=== PATIENT | female | born 1995 | race Caucasian/White ===

== ENCOUNTER 2021-04-30 20:11 | Emergency (ER) | payer OTHER, SELFPAY ==
[2021-04-30 20:12] VITALS: BP 131/68; PULSE 77; RESP 16; TEMP 36.4; O2SAT 99
--- NOTE | 2021-04-30 20:30 | ED.DENTAL ---
HPI - Dental/Oral General Chief complaint: Dental/Oral Stated complaint: dental pain Time Seen by Provider: 04/30/21 20:19 Source: patient Mode of arrival: ambulatory Limitations: no limitations History of Present Illness HPI Narrative: Patient presents for evaluation of right upper and lower dental pain for the last 4 to 5 days. She indicates she was eating when she broke fillings out of her right upper molar and right lower molar. This has caused a considerable amount of pain, without descriptive quality or numerical rating. No radicular component. No fever, chills, nausea, vomiting. She has tried salt water gargles, ibuprofen and tylenol without any improvement in her symptoms thereafter. She contacted a dentist and has an appointment 10 days from now. She states that they will not see her until she gets the infection under control . States no chance she is . Related Data Allergies Allergy/AdvReac Type Severity Reaction Status Date / Time No Known Allergies Allergy Verified 04/30/21 20:19 Review of Systems Review of Systems: CONSTITUTIONAL: Denies fever, chills, or sweats. EYES: Denies visual changes, redness, or discharge. ENT: Reports right upper and lower dental pain. Denies rhinorrhea, congestion, sore throat, or otalgia. CARDIOVASCULAR: Denies chest pain, palpitations, or edema. RESPIRATORY: Denies cough or dyspnea. GASTROINTESTINAL: Denies abdominal pain, nausea, vomiting, or diarrhea. GENITOURINARY: Denies dysuria or hematuria. SKIN: Denies rash or itching. MUSCULOSKELETAL: Denies back pain, joint pain, or myalgia. NEUROLOGIC: Denies headache, numbness, dizziness, or weakness. PSYCHIATRIC: Denies anxiety or depression. [facility] Past Medical History Medical History (Updated 04/30/21 @ 20:36 by Joey Lau, BRIDGETTE, SNEHA) No pertinent past medical history Surgical History Surgical History History of section Family History Family History Mother No pertinent past medical history Social History Social History Smoking status: Never smoker Alcohol intake: never Substance use: never Substance use type: does not use Gender identity (if verbalized by the patient): Female Sexual Orientation (if Verbalized by the Patient): Straight or Heterosexual Spiritual care concerns: No Exam Narrative: GENERAL: Well-appearing, well-nourished, and in no acute distress. HEAD: Normocephalic, atraumatic. EYES: PERRLA and EOMI. ENT: Nares clear, no rhinorrhea or epistaxis. Mucous membranes moist. Fracture of right upper and right lower molar. There is no visible or palpable abscess. Oropharynx without tonsillar hypertrophy exudate or other lesions. Bilateral TMs pearly corrales nonbulging NECK: Supple. No adenopathy or masses. No carotid bruits or JVD CHEST: Clear to auscultation. No respiratory distress. No wheezes rales or rhonchi HEART: Regular rate and rhythm. No murmur heard. Normal peripheral pulses. ABDOMEN: Soft, nontender, nondistended, normal active bowel sounds. EXTREMITIES: Normal range of motion. No edema. SKIN: Warm, dry, no rash. NEURO: No focal deficits. Alert and oriented x3. PSYCH: Normal mood and affect. Course Course Emergency Course: This is a 25-year-old female who presented with complaints of right upper and lower dental pain. On exam she has dental fractures the right upper and lower molars without visible or palpable abscess. She really has an appointment with her dentist, which she was advised to keep. She should return for worsening swelling. Pt in agreement with plan of care. Vital Signs Vital signs: Vital Signs Temperature 36.4 C 04/30/21 20:12 Pulse Rate 77 04/30/21 20:12 Respiratory Rate 16 04/30/21 20:12 Blood Pressure 131/68 04/30/21 20:12 Pulse Oximetry 99
== END 2021-04-30 20:57 | disposition home or self-care (01) ==
PROVIDERS: Emergency Provider Nurse Practitioner; PCP Obstetrics & Gynecology
DX: S02.5XXA Fracture of tooth (traumatic), initial encounter for closed fracture (principal); X58.XXXA Exposure to other specified factors, initial encounter
CPT/HCPCS: 99283

== ENCOUNTER 2022-06-20 08:41 | Emergency (ER) | payer OTHER, SELFPAY ==
[2022-06-20 08:46] VITALS: BP 146/97; PULSE 95; RESP 12; TEMP 36.3; O2SAT 99
== END 2022-06-20 08:46 | disposition left against medical advice (07) ==
LOC: ANHED 09:39
DX: K08.89 Other specified disorders of teeth and supporting structures (principal)
CPT/HCPCS: 99199

== ENCOUNTER 2023-07-30 16:34 | Emergency (ER) | payer SELFPAY ==
[2023-07-30 16:37] VITALS: BP 139/85; PULSE 86; RESP 16; TEMP 36.4; O2SAT 100
--- NOTE | 2023-07-30 17:45 | PC.NURSE ---
pt called x2 for MSE eval, did not respond, no one saw pt exit - did not notify anyone she declined to be seen and left the ED unwitnessed
== END 2023-07-30 17:45 | disposition left against medical advice (07) ==
LOC: ANHED 17:57
DX: R10.9 Unspecified abdominal pain (principal)
CPT/HCPCS: 99199

== ENCOUNTER 2024-11-13 06:32 | Emergency (ER) | payer MEDICAID, SELFPAY ==
--- OUTSIDE RECORDS SUMMARY | 2024-11-13 06:35 | XMS_ITS | Clinical Summary ---
Author Organization [facility] Address [address] [place] [address] Care Team Providers Care Transcription Coordinator Name Role Phone Jose Reid MD Primary Care Provider [phone] Allergies Active Allergy Reactions Criticality Noted Date Comments Ibuprofen Nausea & Vomiting Low 06/09/2020 Mushroom Rash Medium 06/09/2020 Medications Hospital, Clinic, or Other Facility Administered Medication Ordered Dose Route Frequency Start Date End Date Status levonorgestreL (MIRENA) 21 mcg/24 hours (8 yrs) 52 mg IUDIndications:Preg majo Contraception intrauterine Continuous (implanted device) 10/05/2023 9 Active Active Problems No known active problems Surgical History Surgery Date Site/Laterality Comments SECTION 06/18/2015 - 06/17/2016 SECTION 06/18/2016 - 06/17/2017 Social History Tobacco Use Types Packs/Day Years Used Date Smoking Tobacco: Never Tobacco Cessation:Counseling Given: Not Answered AUDIT-C Answer Date Recorded Frequency of Alcohol Consumption Not on file 10/05/2023 Q2: How many drinks containi ng alcohol do you have on a typical day when you are drinking? Patient does not drink 4 Q3: How often do you have si x or more drinks on one occasion? Never 10/05/2023 Personal Safety Answer Date Recorded Getting School Help Needed Not on file 08/18 Comments No Sex and Gender Information Value Date Recorded Sex Assigned at Not on file Legal Sex Female 6:49 AM COFFEE TASTER Gender Identity Not on file Sexual Orientation Not on file Obstetrics History Para Term AB IAB SAB Ectopic Multiple Livin g Live Births 4 4 2 2 4 Date Outcome GA Total Labor Labor/2nd/3rd Weight Sex Type Anes PTL Cande A1 A5 Name Clin Term Term Last Filed Vital Signs Vital Sign Reading Time Taken Comments Blood Pressure 132/79 10/05/2023 11:39 AM CDT Pulse 83 06/09/2020 8:00 AM COFFEE TASTER Temperature 36.9 C (98.5 F) 06/09/2020 7:08 AM COFFEE TASTER Respiratory Rate 16 06/09/2020 7:08 AM COFFEE TASTER Oxygen Saturation 96% 06/09/2020 8:00 AM COFFEE TASTER Inhaled Oxygen Concentration - - Weight 104.8 kg (231 lb) 10/05/2023 11:39 AM CDT Height 165.1 cm (5' 5) 10/05/2023 11:39 AM CDT Body Mass Index 38.44 10/05/2023 11:39 AM CDT Plan of Treatment Health Maintenance Due Date Last Done Comments Cervical Cancer Screening 1993 Depression Screening 1993 Hepatitis C Screening 1993 DTaP/Tdap/Td Vaccine (5 - Tdap) 2004 03/20/1995, 06/07/1994, 05/05/1994, Additional history exists Varicella Vaccines (1 of 2 - 13+ 2-dose series) 2006 Regular Well Visit/Exam 18-64 12/08/2011 Influenza Vaccine (Season Ended) 2025 07/08/2014 Hepatitis B Screening Completed 03/20/1995 , 01/09/1994, 1993 HPV Vaccines Aged Out No longer eligi ble based on patient's age to complete this topic Pneumococcal vaccine <65 Aged Out No longer eligible based on patient's age to complete this topic Insurance [facility] Care Teams Transcription Coordinator Relationship Specialty Start Date End Date Jose Reid MD PCP - General 06/09/20
--- OUTSIDE RECORDS SUMMARY | 2024-11-13 06:35 | XMS_ITS | Data Portability ---
Author Organization [facility] [place] Address [address] [place] [address] Assessment Encounter Date Assessment Date Assessment LastModified by Organization Details LastModified Time 05/26/2023 05/26/2023 The patient and I disscussed the various causes of abnormal uterine bleeding, including polyps, fibroids, hyperplasia, atypia, anovulation, etc. We reviewed the typical evaluation with labs, pelvic US and possible endometrial biopsy. Briefly discussed the options available for treatment (depending on the results of evaluation) such as hormonal treatment (OCPs, progestins), Mirena, endometrial ablation, and surgery. We spent more than 30 minutes face to face. [email or web address] [id number] Not available 05/26/2023 11:19:52 Plan of Treatment Reminders Order Date Submit Date Provider Last Modified By Organization Details Last Modified Time Details Appointments None recorded. Lab unlisted lab - 17-oh progesteron e, lc/MS/MS [address] (Lab), [address], [place], [address], 4 10:26:42 dhea-sulfat e, serum [address] (Lab), [address] [place], [address], 4 10:26:42 hormone panel, serum or plasma [address] (Lab), [address] [place], [address], 4 10:26:42 HbA1c (hemoglobin A1c), blood [address] (Lab), [address], [place], [address], 4 10:26:42 progesteron e, serum [address] (Lab), [address], [place], [address], 4 10:26:42 prolactin, serum [address] (Lab), [address], [place], [address], 4 10:26:43 shbg (sex hormone-bin ding globulin), serum [address] (Lab), [address], [place], [address], 4 10:26:43 testosteron e free/testos terone total, ratio, serum [address] (Lab), [address] [place], [address], 4 10:26:43 TSH, serum or plasma [address] (Lab), [address], [place], [address], 4 10:26:43 CBC w/ auto diff [address] (Lab), [address], [place], [address], 4 10:26:43 CMP, serum or plasma [address] (Lab), [address] [place], [address], 4 10:26:43 Referral None recorded. Procedures None recorded. Surgeries None recorded. Imaging US, pelvis, complete 2022 023 [email or web address] Not available 4 11:30:56 Medication Orders None recorded. Patient TargetsNo targets recorded. Patient InstructionsNo instructions recorded. Reason for Referral None Reported. Procedures Surgical History Date Name Laterality Status Provider Name and Address Organization Details Recorded Time 3 IUD Removal completed Stefano Regalado MD [address], [place], [address], [facility] 05/04/2023 23:22:16 Imaging Results None recorded. Procedure Notes None recorded. Medical Equipment None Reported. Allergies No known drug allergies Medications Name Sig Start Date Stop Date Status Note LastModified by Organization Details LastModified Time clindamycin HCl 300 mg capsule TAKE 1 CAPSULE BY MOUTH EVERY 8 HOURS FOR 7 DAYS 05/26 completed Not Available Not Available Not Available tramadol 50 mg tablet TAKE 1/2 TABLET BY MOUTH EVERY 8 HOURS NEEDED 05/26 completed Not Available Not Available Not Available sertraline 50 mg tablet TAKE 1 TABLET BY MOUTH EVERY DAY 05/26 completed Not Available Not Available Not Available Vitals Date Recorded Body height Body mass index (BMI) Body weight Systolic blood pressure Diastolic blood pressure Provider Name and Address Organization Details Last Updated DateTime 05/04/2023 162.56 cm 39.5 kg/m2 201818.2 5 g 118 mm[Hg] 67 mm[Hg] Kita Bowie [facility] 3 16:37:47 Date Recorded Body height Body mass index (BMI) Body weight Systolic blood pressure Diastolic blood pressure Provider Name and Address Organization Details Last Updated DateTime 05/26/2023 162.56 cm 39.9 kg/m2 591275.8 7 g 120 mm[Hg] 83 mm[Hg] Katherine Laureano [facility] 3 11:25:27 Social History None recorded. Functional Status Question Answer Note LastModified by Organizat ion Details LastModified Time What is your level of alcohol consumption? Occasional [email or web address] Information not available 05/26/2023 Mental Status None recorded. Family History Nothing Reported. Medical History Condition Response Allergies (Food, seasonal, environmental ) N Other N Drug/Latex Allergies/Reactions N Breast Cancer N Blood Transfusion N Dermatologic Disorders N Lung Disease N Defects or Inherited Disease N Breast Problem N Gestational Diabetes N Hematologic disorders N Anesthesia Complications N History of STI N Deep Vein Thrombosis N Polycystic ovary syndrome N Anxiety Disorder N Autoimmune disease N Arthritis N Polyps N Infertility N Acid Reflux (GERD) N History of abnormal pap N Cancer N Varicosities N Stroke N Neurologic/Epilepsy N Endometriosis N High Cholesterol N Fibromyalgia N Headaches N Kidney Disease N Heart Problems N Thyroid Problems N Kidney or Bladder Problems N GI Problems N Eating Disorder N Anemia N Art (IVF or FET) N Psychiatric Illness N Ovarian Cancer N Diabetes N Pulmonary (TB, Asthma) N Hepatitis/Liver Disease N No Past Medical History N Eczema N Urinary Tract Infection N Abuse/Domestic Violence N Asthma N Trauma/Violence N Depression/ depression N Heart Disease N Pre-Eclampsia N Hypertension N Osteoporosis N Thrombophilias N Gynecological History Statement/Question Response Date of LMP Sexually Active? Y STIs/STDs N HPV Vaccine Y Date of Last Pap Smear Sexual Problems? N Current Control Method Seeking Pre gnancy Desired Control Method Seeking Pre gnancy LMP Unknown Obstetrics History GPAL:G 3 P 2 1 0 3 Type Value Full Term 2 Premature 1 Living 3 Total 3 Past Encounters Encounter ID Performer Location Encounter Start Date Encounter Closed Date Diagnosis/Indication Diagnosis SNOMED-CT Code Diagnosis ICD10 Code Diagnosis Note [id number] Stefano Regalado MD [place] [address] [address] 05/04/2023 15:36:46 05/05/2023 16:20:05 Contraception care management 817227393 Z30.9 IUD removed without complicati ons. She tolerated it well. [id number] Stefano Regalado MD [place] [address] [address] 05/26/2023 11:15:47 05/26/2023 12:23:57 Abnormal uterine bleeding [id number] 9100 N93.9 this patient is a 27-year-ol d female with longstandi ng abnormal uterine bleeding. She is been with the Mirena device for several years. She is not had any menses. She had it removed about a month ago and has not had a menses yet. She is concerned. She required reproducti ve assistance in her last because of her amenorrhea /irregular bleeding/a novulation . We spent 40 minutes face-to-fa ce. More than 50% was counseling . We talked about the menstrual cycle. We talked about sex hormones. We talked about etiology of abnormal uterine bleeding. Talked about reproducti ve assistance . We talked about her specific situation which is essentiall y unknown. She has the Mirena out and should wait more time to see if she can have a period on her own. she will get labs given her strong history of abnormal uterine bleeding. We will await the labs and a new menstrual history. Health Concerns Section Related Observation LastModified by Organization Detai ls LastModified Time None Recorded Concern Status LastModified by Organization Details LastModified Time None Recorded Advance Directives Directive None Recorded Payers Encounter Date Sequence Insurance Name Policy Number Policy Andres Covered Member ID Andres Member ID Guarantor Name 05/04/2023 1 [facility] ON OR AFTER 12/16/20 (MEDICAID REPLACEMENT - HMO) Manjula Cowart [id number] Manjula Cowart 05/26/2023 1 [facility] ON OR AFTER 12/16/20 (MEDICAID REPLACEMENT - HMO) Manjula Cowart [id number] Manjula Cowart Notes Date Note Type Note Provider Name and Address Organization Details Recorded Time 05/04/2023 text/html presents for IUD removal, she understands the procedure. It has been explained in detail. She understands risks, benefits, and alternatives. Stefano Regalado MD [address], [place], [address], [facility] 05/04/2023 23:23:06 05/26/2023 text/html this patient is a 27-year-old female with longstanding abnormal uterine bleeding. She is been with the Mirena device for several years. She is not had any menses. She had it removed about a month ago and has not had a menses yet. She is concerned. She required reproductive assistance in her last because of her amenorrhea/irregul ar bleeding/anovulati on. We spent 40 minutes [id number]. More than 50% was counseling. We talked about the menstrual cycle. We talked about sex hormones. We talked about etiology of abnormal uterine bleeding. Talked about reproductive assistance. We talked about her specific situation which is essentially unknown. She has the Mirena out and should wait more time to see if she can have a period on her own. she will get labs given her strong history of abnormal uterine bleeding. We will await the labs and a new menstrual history. Stefano Regalado MD [address], [place], [address], [place] [facility] 05/26/2023 12:23:38 OBGyn Episode Ob Episode Information Episode Created Date Number of Fetuses Patient Bloodtype Patient rh Status Prepregnancy Weight lbs Domestic Partner Domestic Partner Phone Father Name Fish Roe Processor Status 05/04/20 23 1 CLOSED Fetus Data First Name Last Name Admitted to NICU Weight (g) Sex Living Outcome Pediatric Complications Fetus ID Race Codes Race Delivery Type 3345.24 1 F Full Term [id number] Vaginal Delivery Sonu Calculation Initial Sonu Date Initial Exam Date Initial Exam Provider Initial Ultrasound Date Last Menstrual Period Date Ultra Sound Weeks Gestation 0 Eighteen To Twenty Week Sonu Update Ultra Sound Date Fundal Height At Umbil Quickening Date Ultra Sound Latest Weeks Gestation Final Sonu Confirmed By Final Sonu Confirmed Date Final Sonu Date Ultra Sound Latest Days Gestation 0 0 Menstrual History Last Menstrual Date Menses Monthly On Bcp Conception Prior Menses Frequency Hcg Plus Date Menarche Onset Age Delivery Information Delivery Date Delivery Type Labor Anesthesia Weeks Gestation Incision Type Labor Labor Length Hrs Delivered By Post Complications Tubal Sterilization Discharge Date Comments 1 Sascha Discharge Information Feeding Method Contraceptive Method Maternal HG B and HCT Levels Ob Episode Information Episode Created Date Number of Fetuses Patient Bloodtype Patient rh Status Prepregnancy Weight lbs Domestic Partner Domestic Partner Phone Father Name Fish Roe Processor Status 05/04/20 23 1 CLOSED Fetus Data First Name Last Name Admitted to NICU Weight (g) Sex Living Outcome Pediatric Complications Fetus ID Race Codes Race Delivery Type 3685.43 5 M Full Term [id number] Vaginal Delivery Sonu Calculation Initial Sonu Date Initial Exam Date Initial Exam Provider Initial Ultrasound Date Last Menstrual Period Date Ultra Sound Weeks Gestation 0 Eighteen To Twenty Week Sonu Update Ultra Sound Date Fundal Height At Umbil Quickening Date Ultra Sound Latest Weeks Gestation Final Sonu Confirmed By Final Sonu Confirmed Date Final Sonu Date Ultra Sound Latest Days Gestation 0 0 Menstrual History Last Menstrual Date Menses Monthly On Bcp Conception Prior Menses Frequency Hcg Plus Date Menarche Onset Age Delivery Information Delivery Date Delivery Type Labor Anesthesia Weeks Gestation Incision Type Labor Labor Length Hrs Delivered By Post Complications Tubal Sterilization Discharge Date Comments 3 Ty Discharge Information Feeding Method Contraceptive Method Maternal HG B and HCT Levels Ob Episode Information Episode Created Date Number of Fetuses Patient Bloodtype Patient rh Status Prepregnancy Weight lbs Domestic Partner Domestic Partner Phone Father Name Fish Roe Processor Status 05/04/20 23 1 CLOSED Fetus Data First Name Last Name Admitted to NICU Weight (g) Sex Living Outcome Pediatric Complications Fetus ID Race Codes Race Delivery Type 1785.79 1704 F Prematur e [id number] Primary Sonu Calculation Initial Sonu Date Initial Exam Date Initial Exam Provider Initial Ultrasound Date Last Menstrual Period Date Ultra Sound Weeks Gestation 0 Eighteen To Twenty Week Sonu Update Ultra Sound Date Fundal Height At Umbil Quickening Date Ultra Sound Latest Weeks Gestation Final Sonu Confirmed By Final Sonu Confirmed Date Final Sonu Date Ultra Sound Latest Days Gestation 0 0 Menstrual History Last Menstrual Date Menses Monthly On Bcp Conception Prior Menses Frequency Hcg Plus Date Menarche Onset Age Delivery Information Delivery Date Delivery Type Labor Anesthesia Weeks Gestation Incision Type Labor Labor Length Hrs Delivered By Post Complications Tubal Sterilization Discharge Date Comments 7 24 Aaleyah ruptured placenta per pt. Discharge Information Feeding Method Contraceptive Method Maternal HG B and HCT Levels
--- OUTSIDE RECORDS SUMMARY | 2024-11-13 06:35 | XMS_ITS | Referral Summary ---
Author Organization [facility] Address [address] [place] [address] Care Team Providers Care Optical Laboratory Mechanic Name Role Phone Jose Reid MD Primary Care Provider [phone] Allergies Active Allergy Reactions Criticality Noted Date Comments Ibuprofen Nausea & Vomiting Low 06/09/2020 Mushroom Rash Medium 06/09/2020 Medications Hospital, Clinic, or Other Facility Administered Medication Ordered Dose Route Frequency Start Date End Date Status levonorgestreL (MIRENA) 21 mcg/24 hours (8 yrs) 52 mg IUDIndications:Preg majo Contraception intrauterine Continuous (implanted device) 10/05/2023 9 Active Active Problems No known active problems Social History Tobacco Use Types Packs/Day Years Used Date Smoking Tobacco: Never Tobacco Cessation:Counseling Given: Not Answered AUDIT-C Answer Date Recorded Frequency of Alcohol Consumption Not on file 10/05/2023 Q2: How many drinks containi ng alcohol do you have on a typical day when you are drinking? Patient does not drink Q3: How often do you have si x or more drinks on one occasion? Never 10/05/2023 Personal Safety Answer Date Recorded Getting School Help Needed Not on file 08/18 Comments No Sex and Gender Information Value Date Recorded Sex Assigned at Not on file Legal Sex Female 6:49 AM HAND EDGER Gender Identity Not on file Sexual Orientation Not on file Last Filed Vital Signs Vital Sign Reading Time Taken Comments Blood Pressure 132/79 10/05/2023 11:39 AM CDT Pulse 83 06/09/2020 8:00 AM HAND EDGER Temperature 36.9 C (98.5 F) 06/09/2020 7:08 AM HAND EDGER Respiratory Rate 16 06/09/2020 7:08 AM HAND EDGER Oxygen Saturation 96% 06/09/2020 8:00 AM HAND EDGER Inhaled Oxygen Concentration - - Weight 104.8 kg (231 lb) 10/05/2023 11:39 AM CDT Height 165.1 cm (5' 5) 10/05/2023 11:39 AM CDT Body Mass Index 38.44 10/05/2023 11:39 AM CDT Plan of Treatment Not on file Insurance [facility] Care Teams Optical Laboratory Mechanic Relationship Specialty Start Date End Date Jose Reid MD PCP - General 06/09/20
--- OUTSIDE RECORDS SUMMARY | 2024-11-13 06:35 | XMS_ITS | Data Portability ---
Author Organization [facility] Ro Vela Address [address] [place] [address] Care Team Providers Care Hvac Mechanic Name Role Phone DONTAE DAVALOS Klystrom Tube Tester Unavailable Assessment No assessment recorded. Plan of Treatment Reminders Order Date Submit Date Provider Last Modified By Organization Details Last Modified Time Details Appointments None recorded. Lab pap, IG + CT/NG 2017 018 [facility], [address], [place], [address], 8 06:08:15 bacterial vaginosis + vaginitis panel, vaginal 2017 018 [facility], [address], [place], [address], 8 06:06:49 HSV (1+2) DNA, qual, PCR, unspecifi ed specimen 2017 018 [facility], [address], [place], [address], 9 14:53:41 test, urine 2017 018 [place] In-Office Order, Internal Use Only DO Not Attach Compendium DO Not Attach Compendium, Do Not Delete/merge, [id number] 8 12:24:54 urinalysi s, dipstick 2017 018 [place] In-Office Order, Internal Use Only DO Not Attach Compendium DO Not Attach Compendium, Do Not Delete/merge, [id number] 8 12:24:54 pap, IG + HPV, cervical 2016 017 [facility], [address], [place], [address], 7 16:19:09 culture, urine 2016 017 [facility], [address], [place], [address], 7 14:10:23 bacterial vaginosis + vaginitis panel, vaginal - Z11.3 2016 017 [facility], [address], [place], [address], 7 14:10:21 HSV (1+2) DNA, qual, PCR, unspecifi ed specimen - Z11.3 2016 017 [facility], [address] [place], [place] [address], [address], [place], [address], 7 14:10:22 culture, vaginal/r ectal, streptoco ccus group B - Z11.3 2016 017 [facility] [address], [address], [place], [address], 7 14:10:22 test, urine 2016 017 [place] In-Office Order, Internal Use Only DO Not Attach Compendium DO Not Attach Compendium, Do Not Delete/merge, [id number] 7 05:01:59 urinalysi s, dipstick 2016 017 [facility] In-Office Order, Internal Use Only DO Not Attach Compendium DO Not Attach Compendium, Do Not Delete/merge, [id number] 7 14:00:39 urinalysi s, dipstick 2016 017 [facility] In-Office Order, Internal Use Only DO Not Attach Compendium DO Not Attach Compendium, Do Not Delete/merge, [id number] 7 12:11:03 Referral counselin g referral 2016 017 [facility] (), [address] [place], [address], 7 13:28:54 counselin g referral 2016 017 [facility] (), [address] [place], [address], 7 15:30:22 Procedures None recorded. Surgeries None recorded. Imaging US, obstetric , 2nd trimester - 3d if available and at correct gestation al age. [address] ([facility] [employer]), [address] [place], [address], 7 12:44:46 US, obstetric , 2nd trimester 2016 017 [facility], [address] [place], [address], 7 15:18:57 Medication Orders Flagyl 500 mg tablet 2017 018 [id number], [address], [place], [place], [id number], 8 12:44:12 nitrofura ntoin monohydra te/macroc rystals 100 mg capsule 2016 017 [facility] #[id number], [address], [place], [place], [id number], 7 12:19:44 Mirena 21 mcg/24 hr (up to 8 years) 52 mg intrauter ine device 2016 017 yadira Not available 7 14:00:39 Contrave 8 mg-90 mg tablet,ex tended release 2016 017 [facility] Not available 7 12:46:32 calcium 600 mg (as carbonate )-vitamin D3 20 mcg (800 unit) tablet 2016 017 [facility] #[id number], [address], [place], [place], [id number], 7 14:36:37 Abilify 5 mg tablet 2016 017 [facility][id number], [address] [place], [id number], 7 14:36:37 buspirone 10 mg tablet [address] [place] [address] [facility][id number], [address] [place] [address], [id number], 7 12:15:28 citalopra m 40 mg tablet [email or web address] [place] [address] [facility][id number], [address] [place] [address], [id number], 7 12:15:24 bupropion HCl SR 150 mg tablet,12 hr sustained -release [address] [place] [address] [facility][id number], [address] [place] [address], [id number], 7 12:15:21 Patient TargetsNo targets recorded. Patient Instructions Encounter Date Encounter Id Patient Instructions Last Modified By Organization Details Last Modified Time 08/09/2016 [id number] learning about mood disorders yadira Not available 08/09/2016 15:18:57 09/06/2016 [id number] learning about mood disorders mwasserman Not available 09/06/2016 14:36:37 11/16/2016 [id number] depression after childbirth: care instructions [email or web address] Not available 11/16/2016 12:30:58 stress in parents of infants: care instructions [email or web address] Not available 11/16/2016 12:30:58 intrauterine device (IUD) insertion: care instructions [email or web address] Not available 11/16/2016 12:30:58 learning about obesity mwasserman Not available 11/16/2016 12:19:51 eating healthy foods: care instructions mwasserman Not available 11/16/2016 12:19:51 learning about dietary guidelines mwasserman Not available 11/16/2016 12:19:51 learning about healthy weight mwasserman Not available 11/16/2016 12:19:51 05/15/2018 [id number] When You Want to Lose Weight: Care Instructions [email or web address] Not available 05/15/2018 12:55:30 abnormal Pap test: care instructions [email or web address] Not available 05/15/2018 12:25:54 Well Visit, Ages 18 to 65: Care Instructions [email or web address] Not available 05/15/2018 12:54:58 bacterial vaginosis: care instructions [email or web address] Not available 05/15/2018 12:44:05 Reason for Referral Counseling Referral for Depr essive disorder Referring Physician: Dontae Davalos CAN CONVEYOR FEEDER, Encounter Date: 08/09/2016 Counseling Referral for Post depression Referring Physician: Dontae Davalos CAN CONVEYOR FEEDER, Encounter Date: 11/16/2016 Results Created Date Observation Date Name Description Value Unit Range Abnormal Flag Note LastModifiedBy Organization Detail LastModifiedTime 11/17/19 17 11/16/2016 urina lysis , dipst ick Leukocytes Trace Not Available In-Offi ce Order Internal Use Only DO Not Attach Compendium DO Not Attach Compendium, Do Not Delete/merge, [id number] 11/16/2016 11:52:26 11/17/19 17 11/16/2016 urina lysis , dipst ick Nitrite positi ve Not Available In-Office Order Internal Use Only DO Not Attach Compendium DO Not Attach Compendium, Do Not Delete/merge, [id number] 11/16/2016 11:52:26 11/17/19 17 11/16/2016 urina lysis , dipst ick Urobilinogen .2 Not Available In-Of fice Order Internal Use Only DO Not Attach Compendium DO Not Attach Compendium, Do Not Delete/merge, 11/16/2016 11:52:26 11/17/19 17 11/16/2016 urina lysis , dipst ick Protein Negati ve Not Available In-Office Order Internal Use Only DO Not Attach Compendium DO Not Attach Compendium, Do Not Delete/merge, 11/16/2016 11:52:26 11/17/19 17 11/16/2016 urina lysis , dipst ick pH 6.5 Not Available In-Office Order Internal Use Only DO Not Attach Compendium DO Not Attach Compendium, Do Not Delete/merge, 11/16/2016 11:52:26 11/17/19 17 11/16/2016 urina lysis , dipst ick Blood Modera te Not Available In-Office Order Internal Use Only DO Not Attach Compendium DO Not Attach Compendium, Do Not Delete/merge, 11/16/2016 11:52:26 11/17/19 17 11/16/2016 urina lysis , dipst ick Specific [place] 1.010 Not Available In-Off ice Order Internal Use Only DO Not Attach Compendium DO Not Attach Compendium, Do Not Delete/merge, 11/16/2016 11:52:26 11/17/1911/16/2016 urina lysis , dipst ick Ketone Negati ve Not Available In-Office Order Internal Use Only DO Not Attach Compendium DO Not Attach Compendium, Do Not Delete/merge, 11/16/2016 11:52:26 11/17/19 17 11/16/2016 urina lysis , dipst ick Bilirubin Negati ve Not Available In-Office Order Internal Use Only DO Not Attach Compendium DO Not Attach Compendium, Do Not Delete/merge, 11/16/2016 11:52:26 11/17/1911/16/2016 urina lysis , dipst ick Glucose Negati ve Not Available In-Office Order Internal Use Only DO Not Attach Compendium DO Not Attach Compendium, Do Not Delete/merge, 11/16/2016 11:52:26 09/07/19 17 09/06/2016 urina lysis , dipst ick Leukocytes Trace Not Available In-Offi ce Order Internal Use Only DO Not Attach Compendium DO Not Attach Compendium, Do Not Delete/merge, 09/06/2016 11:40:10 09/07/19 17 09/06/2016 urina lysis , dipst ick Nitrite negati ve Not Available In-Office Order Internal Use Only DO Not Attach Compendium DO Not Attach Compendium, Do Not Delete/merge, 09/06/2016 11:40:10 09/07/19 17 09/06/2016 urina lysis , dipst ick Urobilinogen .2 Not Available In-Of fice Order Internal Use Only DO Not Attach Compendium DO Not Attach Compendium, Do Not Delete/merge, 09/06/2016 11:40:10 09/07/19 17 09/06/2016 urina lysis , dipst ick Protein Negati ve Not Available In-Office Order Internal Use Only DO Not Attach Compendium DO Not Attach Compendium, Do Not Delete/merge, 09/06/2016 11:40:10 09/07/19 17 09/06/2016 urina lysis , dipst ick pH 7.5 Not Available In-Office Order Internal Use Only DO Not Attach Compendium DO Not Attach Compendium, Do Not Delete/merge, 09/06/2016 11:40:10 09/07/19 17 09/06/2016 urina lysis , dipst ick Blood Negati ve Not Available In-Office Order Internal Use Only DO Not Attach Compendium DO Not Attach Compendium, Do Not Delete/merge, 09/06/2016 11:40:10 09/07/19 17 09/06/2016 urina lysis , dipst ick Specific [place] 1.015 Not Available In-Off ice Order Internal Use Only DO Not Attach Compendium DO Not Attach Compendium, Do Not Delete/merge, 09/06/2016 11:40:10 09/07/19 17 09/06/2016 urina lysis , dipst ick Ketone Negati ve Not Available In-Office Order Internal Use Only DO Not Attach Compendium DO Not Attach Compendium, Do Not Delete/merge, 09/06/2016 11:40:10 09/07/19 17 09/06/2016 urina lysis , dipst ick Bilirubin Negati ve Not Available In-Office Order Internal Use Only DO Not Attach Compendium DO Not Attach Compendium, Do Not Delete/merge, 09/06/2016 11:40:10 09/07/19 17 09/06/2016 urina lysis , dipst ick Glucose Negati ve Not Available In-Office Order Internal Use Only DO Not Attach Compendium DO Not Attach Compendium, Do Not Delete/merge, 09/06/2016 11:40:10 07/12/19 17 07/12/2016 urina lysis , dipst ick Leukocytes Negati ve Not Available In-Office Order Internal Use Only DO Not Attach Compendium DO Not Attach Compendium, Do Not Delete/merge, 07/12/2016 12:22:25 07/12/19 17 07/12/2016 urina lysis , dipst ick Nitrite negati ve Not Available In-Office Order Internal Use Only DO Not Attach Compendium DO Not Attach Compendium, Do Not Delete/merge, 07/12/2016 12:22:25 07/12/19 17 07/12/2016 urina lysis , dipst ick Urobilinogen 1 Not Available In-Of fice Order Internal Use Only DO Not Attach Compendium DO Not Attach Compendium, Do Not Delete/merge, 07/12/2016 12:22:25 07/12/19 17 07/12/2016 urina lysis , dipst ick Protein 30 Not Available In-Office Order Internal Use Only DO Not Attach Compendium DO Not Attach Compendium, Do Not Delete/merge, 07/12/2016 12:22:25 07/12/19 17 07/12/2016 urina lysis , dipst ick pH 8.5 Not Available In-Office Order Internal Use Only DO Not Attach Compendium DO Not Attach Compendium, Do Not Delete/merge, 07/12/2016 12:22:25 07/12/19 17 07/12/2016 urina lysis , dipst ick Blood Negati ve Not Available In-Office Order Internal Use Only DO Not Attach Compendium DO Not Attach Compendium, Do Not Delete/merge, 07/12/2016 12:22:25 07/12/19 17 07/12/2016 urina lysis , dipst ick Specific [place] 1.020 Not Available In-Off ice Order Internal Use Only DO Not Attach Compendium DO Not Attach Compendium, Do Not Delete/merge, 07/12/2016 12:22:25 07/12/19 17 07/12/2016 urina lysis , dipst ick Ketone Negati ve Not Available In-Office Order Internal Use Only DO Not Attach Compendium DO Not Attach Compendium, Do Not Delete/merge, 07/12/2016 12:22:25 07/12/19 17 07/12/2016 urina lysis , dipst ick Bilirubin Negati ve Not Available In-Office Order Internal Use Only DO Not Attach Compendium DO Not Attach Compendium, Do Not Delete/merge, 07/12/2016 12:22:25 07/12/19 17 07/12/2016 urina lysis , dipst ick Glucose Negati ve Not Available In-Office Order Internal Use Only DO Not Attach Compendium DO Not Attach Compendium, Do Not Delete/merge, 07/12/2016 12:22:25 11/17/19 17 11/19/2016 bacte rial vagin osis + vagin itis panel , vagin al atopobium vaginae LOW - 0 score Not Available [facility] ([facility]) [address] [place], [address], 11/20/2016 14:10:21 11/17/19 17 11/19/2016 bacte rial vagin osis + vagin itis panel , vagin al bvab 2 LOW - 0 score Not Available [facility] ([facility]) [address] [place], [address], 11/20/2016 14:10:21 11/17/19 17 11/19/2016 bacte rial vagin osis + vagin itis panel , vagin al megasphaera 1 LOW - 0 score CALCU LATE TOTAL SCORE BY ELANA Arguelles THE 3 INDIV IDUAL BACTE RIAL VAGIN OSIS (BV) MARKE R SCORE S TOGET HER. TOTAL SCORE IS INTER PRETE D FOLLO WS: TOTAL SCORE 0-1: INDIC ATES THE ABSEN CE OF BV. TOTAL SCORE 2: INDET ERMIN ATE FOR BV. ADDIT IONAL CLINI AAMIR DATA SHOUL D BE EVALU ATED TO ESTAB CHAU A DIAGN OSIS. TOTAL SCORE 3-6: INDIC ATES THE PRESE NCE OF BV. THIS TEST WAS DEVEL OPED AND ITS PERFO RMANC E SERA CTERI STICS DETER MINED BY [employer]. IT HAS NOT BEEN CLEAR ED OR APPRO BHVAANA BY THE FOOD AND DRUG ADMIN ISTRA TION. THE FDA HAS DETER MINED THAT SUCH CLEAR ANCE OR APPRO JOMAR IS NOT NECES NEDRA. Not Available [facility] ([facility]) [address] [place], [address], 11/20/2016 14:10:21 11/17/19 17 11/19/2016 bacte rial vagin osis + vagin itis panel , vagin al carlos albicans, ANNA MARIE NEGATI VE negati ve Not Available [facility] ([facility]) [address] [place], [address], 11/20/2016 14:10:21 11/17/19 17 11/19/2016 bacte rial vagin osis + vagin itis panel , vagin al carlos glabrata, ANNA MARIE NEGATI VE negati ve THIS TEST WAS DEVEL OPED AND ITS PERFO RMANC E SERA CTERI STICS DETER MINED BY [employer]. IT HAS NOT BEEN CLEAR ED OR APPRO BHAVANA BY THE FOOD AND DRUG ADMIN ISTRA TION. THE FDA HAS DETER MINED THAT SUCH CLEAR ANCE OR APPRO JOMAR IS NOT NECES NEDRA. Not Available [facility] ([facility]) [address] [place], [address], 11/20/2016 14:10:21 11/17/19 17 11/19/2016 bacte rial vagin osis + vagin itis panel , vagin al chlamydia trachomatis, ANNA MARIE NEGATI VE negati ve Not Available [facility] ([facility]) [address] [place], [address], 11/20/2016 14:10:21 11/17/19 17 11/19/2016 bacte rial vagin osis + vagin itis panel , vagin al neisseria gonorrhoeae, ANNA MARIE NEGATI VE negati ve Not Available [facility] ([facility]) [address] [place], [address], 11/20/2016 14:10:21 11/17/19 17 11/20/2016 bacte rial vagin osis + vagin itis panel , vagin al trich vag by ANNA MARIE NEGATI VE negati ve Not Available [facility] ([facility]) [address] [place], [address], 11/20/2016 14:10:21 11/17/19 17 11/19/2016 HSV (1+2) DNA, qual, PCR, unspe cifie d speci men hsv 1 ANNA MARIE NEGATI VE negati ve Not Available [facility] ([facility]) [address] [place], [address], 11/20/2016 14:10:22 11/17/19 17 11/19/2016 HSV (1+2) DNA, qual, PCR, unspe cifie d speci men hsv 2 ANNA MARIE NEGATI VE negati ve Not Available [facility] ([facility]) [address] [place], [address], 11/20/2016 14:10:22 11/17/19 17 11/18/2016 cultu re, vagin al/re ctal, strep tococ cus group B strep gp B ANNA MARIE NEGATI VE negati ve [facility]ENT[facility] RS FOR DISEA SE CONTR OL AND PREVE NTION (CDC) AND AMERI CAN CONGR ESS OF OBSTE TRICI ANS AND GYNEC OLOGI STS (ACOG ) GUIDE LINES FOR PREVE NTION OF PERIN ATAL GROUP B STREP TOCOC AAMIR (GBS) DISEA SE SPECI FY CO-CO LLECT ION OF A VAGIN AL AND RECTA L SWAB SPECI MEN TO MAXIM IZE SENSI TIVIT Y OF GBS DETEC TION. PER THE CDC AND ACOG, SWABB ING BOTH THE LOWER VAGIN A AND RECTU M SUBST ANTIA LLY INCRE ASES THE YIELD OF DETEC TION JAXON RED WITH SAMPL ING THE VAGIN A ALONE . PENIC ILLIN G, AMPIC ILLIN , OR CEFAZ BLADE ARE INDIC ATED FOR INTRA PARTU M PROPH YLAXI S OF PERIN ATAL GBS COLON IZATI ON. REFLE X SUSCE PTIBI LITY TESTI NG SHOUL D BE PERFO RMED PRIOR TO USE OF CLIND AMYCI N ONLY ON GBS ISOLA AZAR FROM PENIC ILLIN -KEE RGIC WOMEN WHO ARE CONSI DERED A HIGH RISK FOR ANAPH YLAXI S. TREAT MENT WITH VANCO MYCIN WITHO UT ADDIT IONAL TESTI NG IS WARRA NTED IF RESIS TANCE TO CLIND AMYCI N IS NOTED . Not Available [facility] ([facility]) [address] [place], [address], 11/20/2016 14:10:22 11/17/19 17 11/20/2016 cultu re, urine urine culture, routine FINAL REPORT abnormal Not Available [facility] ([facility]) [address] [place], [address], 11/20/2016 14:10:23 11/17/19 17 11/20/2016 cultu re, urine result 1 COMMEN T abnormal ESCHE DANEILE A COLI, IDENT IFIED BY AN AUTOM ATED BIOCH EMICA L SYSTE M. GREAT ER THAN 100,0 00 COLON Y FORMI NG UNITS PER ML Not Available [facility] ([facility]) [address] [place], [address], 11/20/2016 14:10:23 11/17/19 17 11/20/2016 cultu re, urine antimicrobia l susceptibili ty COMMEN T S = SUSCE PTIBL E; I = INTER MEDIA TE; R = RESIS TANT P = POSIT RYAN; N = NEGAT RYAN MICS ARE EXPRE SSED IN MICRO GRAMS PER ML ANTIB IOTIC RSLT# 1 RSLT# 2 RSLT# 3 RSLT# 4 AMOXI CILLI N/CLA VULAN IC ACID S AMPIC ILLIN R CEFEP KURTIS S CEFTR IAXON E S CEFUR OXIME S CEPHA LOTHI N I CIPRO FLOXA MISA S ERTAP ENEM S GENTA MICIN S IMIPE NEM S LEVOF LOXAC IN S NITRO FURAN TOIN S PIPER ACILL IN R TETRA CYCLI NE S TOBRA MYCIN S TRIME THOPR IM/JESUS LFA S Not Available [facility] ([facility]) [address] [place], [address], 11/20/2016 14:10:23 11/17/19 17 11/20/2016 pap, IG + HPV, cervi aamir HPV aptima POSITI VE negati ve abnormal THIS TEST DETEC TS FOURT EEN HIGH- RISK HPV TYPES (16/1 8/31/ 33/35 /39/4 5/ 51/52 /56/5 8/59/ 66/68 ) WITHO UT DIFFE RENTI ATION . 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 ATYPI AAMIR SQUAM OUS CELLS OF UNDET ERMIN ED SIGNI FICAN CE. Not Available [facility] ([facility]) [address] [place], [address], 11/21/2016 16:19:09 11/17/19 17 11/21/2016 pap, IG + HPV, cervi aamir specimen adequacy: COMMEN T SATIS FACTO RY FOR EVALU ATION . ENDOC ERVIC AL AND/O R SQUAM OUS METAP LASTI C CELLS (ENDO CERVI AAMIR COMPO NENT) ARE PRESE NT. Not Available [facility] ([facility]) [address] [place], [address], 11/21/2016 16:19:11/17/19 17 11/21/2016 pap, IG + HPV, cervi aamir clinician provided ICD10: DORA Golden Z39.2 Z20.2 N39.0 Not Available [facility] ([facility]) [address] [place], [address], 11/21/2016 16:19:11/17/19 17 11/21/2016 pap, IG + HPV, cervi aamir performed by: DORA LOVE , MJ Golden (ASCP ) Not Available [facility] ([facility]) [address] [place], [address], 11/21/2016 16:19:11/17/19 17 11/21/2016 pap, IG + HPV, cervi aamir electronical ly signed by: DORA SHAY MD, PATHO LOGIS T Not Available [facility] ([facility]) [address] [place], [address], 11/21/2016 16:19:11/17/19 17 11/21/2016 pap, IG + HPV, cervi aamir . . Not Available [facility] ([facility]) [address] [place], [address], 11/21/2016 16:19:11/17/19 17 11/21/2016 pap, IG + HPV, cervi aamir pathologist provided ICD10: DORA Golden R87.6 10 Not Available [facility] ([facility]) [address] [place], [address], 11/21/2016 16:19:11/17/19 17 11/21/2016 pap, IG + HPV, cervi aamir note: DORA Golden THE PAP SMEAR IS A SCREE ZULLY TEST DESIG WALTER TO AID IN THE DETEC TION OF BRIDGER LIGNA NT AND MALIG NANT CONDI TIONS OF THE UTERI NE CERVI X. IT IS NOT A DIAGN OSTIC PROCE DURE AND SHOUL D NOT BE USED THE SOLE MEANS OF DETEC TING CERVI AAMIR CANCE R. BOTH FALSE -POSI TIVE AND FALSE -NEGA TIVE REPOR TS DO OCCUR . Not Available [facility] ([facility]) [address] [place], [address], 11/21/2016 16:19:09 11/17/19 17 11/21/2016 pap, IG + HPV, cervi aamir test methodology: COMMEN T THIS LIQUI D BASED THINP REP(R ) PAP TEST WAS SCREE WALTER WITH THE USE OF AN IMAGE GUIDE Madhuri Gimenez Not Available [facility] ([facility]) [address] [place], [address], 11/21/2016 16:19:09 05/15/20 18 05/17/2018 bacte rial vagin osis + vagin itis panel , vagin al atopobium vaginae Low - 0 score Not Available [facility] ([facility]) [address] [place], [address], 05/18/2018 06:06:49 05/15/20 18 05/17/2018 bacte rial vagin osis + vagin itis panel , vagin al bvab 2 Low - 0 score Not Available [facility] ([facility]) [address] [place], [address], 05/18/2018 06:06:49 05/15/20 18 05/17/2018 bacte rial vagin osis + vagin itis panel , vagin al megasphaera 1 Low - 0 score Calcu late total score by elana arguelles the 3 indiv idual bacte rial vagin osis (BV) marke r score s toget her. Total score is inter prete d as follo ws: Total score 0-1: Indic ates the absen ce of BV. Total score 2: Indet ermin ate for BV. Addit ional clini aamir data shoul d be evalu ated to estab chau smith. Total score 3-6: Indic ates the prese nce of BV. This test was devel oped and its perfo rmanc e sera cteri stics deter mined by [employer]. It has not been clear ed or appro bhavana by the Food and Drug Admin istra tion. The FDA has deter mined that such clear ance or appro ojmar is not neces nedra. Not Available [facility] ([facility]) [address] [place], [address], 05/18/2018 06:06:49 05/15/20 18 05/17/2018 bacte rial vagin osis + vagin itis panel , vagin al carlos albicans, ANNA MARIE Negati ve negati ve Not Available [facility] ([facility]) [address] [place], [address], 05/18/2018 06:06:49 05/15/20 18 05/17/2018 bacte rial vagin osis + vagin itis panel , vagin al carlos glabrata, ANNA MARIE Negati ve negati ve This test was devel oped and its perfo rmanc e sera cteri stics deter mined by [employer]. It has not been clear ed or appro bhavana by the Food and Drug Admin istra tion. The FDA has deter mined that such clear ance or appro jomar is not neces nedra. Not Available [facility] ([facility]) [address] [place], [address], 05/18/2018 06:06:49 05/15/20 18 05/17/2018 bacte rial vagin osis + vagin itis panel , vagin al trich vag by ANNA MARIE Negati ve negati ve Not Available [facility] ([facility]) [address] [place], [address], 05/18/2018 06:06:49 05/15/20 18 05/17/2018 bacte rial vagin osis + vagin itis panel , vagin al chlamydia trachomatis, ANNA MARIE Negati ve negati ve Not Available [facility] ([facility]) [address] [place], [address], 05/18/2018 06:06:49 05/15/20 18 05/17/2018 bacte rial vagin osis + vagin itis panel , vagin al neisseria gonorrhoeae, ANNA MARIE Negati ve negati ve Not Available [facility] ([facility]) [address] [place], [address], 05/18/2018 06:06:49 05/15/20 18 05/21/2018 pap, IG + CT/NG diagnosis: Dora DAVIS FOR INTRA EPITH ELIAL LESIO N AND JHON MASON . THIS SPECI MEN WAS RESCR EENED PART OF OUR QUALI TY CONTR OL PROGR AM. Not Available [facility] ([facility]) [address] [facility], [place], [address], 05/22/2018 06:08:15 05/15/20 18 05/21/2018 pap, IG + CT/NG specimen adequacy: Dora t Satis facto ry for evalu ation . Endoc ervic al and/o r squam ous metap lasti c cells (endo cervi aamir compo nent) are prese nt. Not Available [facility] ([facility]) [address] [facility], [place], [address], 05/22/2018 06:08:15 05/15/20 18 05/21/2018 pap, IG + CT/NG clinician provided ICD10: Dora golden R87.6 10 Not Available [facility] ([facility]) [address] [place], [address], 05/22/2018 06:08:15 05/15/20 18 05/21/2018 pap, IG + CT/NG performed by: Mj Sanderson (ASCP ) Not Available [facility] ([facility]) [address] [place], [address], 05/22/2018 06:08:15 05/15/20 18 05/21/2018 pap, IG + CT/NG QC reviewed by: Dora Boswell n, Super visor y Cytot echsunil collado t (ASCP ) Not Available [facility] ([facility]) [address] [place], [address], 05/22/2018 06:08:15 05/15/20 18 05/21/2018 pap, IG + CT/NG . . Not Available [facility] ([facility]) [address] [place], [address], 05/22/2018 06:08:15 05/15/20 18 05/21/2018 pap, IG + CT/NG note: Dora golden The Pap smear is a scree zully test desig walter to aid in the detec tion of bridger ligna nt and malig nant condi tions of the uteri ne cervi x. It is not a diagn ostic proce dure and shoul d not be used as the sole means of detec ting cervi aamir cance r. Both false -posi tive and false -nega tive repor ts do occur . Not Available [facility] ([facility]) [address] [place], [address], 05/22/2018 06:08:15 05/15/20 18 05/21/2018 pap, IG + CT/NG test methodology: Dora golden This liqui d based ThinP rep(R ) pap test was scree walter with the use of an image guide d systlaura m. Not Available [facility] ([facility]) [address] [place], [address], 05/22/2018 06:08:15 05/15/20 18 05/22/2018 pap, IG + CT/NG chlamydia, nuc. acid amp Negati ve negati ve Not Available [facility] ([facility]) [address] [place], [address], 05/22/2018 06:08:15 05/15/20 18 05/22/2018 pap, IG + CT/NG gonococcus, nuc. acid amp Negati ve negati ve Not Available [facility] ([facility]) [address] [facility], [place], [address], 05/22/2018 06:08:15 05/15/20 18 05/15/2018 urina lysis , dipst ick Leukocytes Trace Not Available In-Offi ce Order Internal Use Only DO Not Attach Compendium DO Not Attach Compendium, Do Not Delete/merge, [id number] 05/15/2018 11:45:54 05/15/20 18 05/15/2018 urina lysis , dipst ick Nitrite negati ve Not Available In-Office Order Internal Use Only DO Not Attach Compendium DO Not Attach Compendium, Do Not Delete/merge, [id number] 05/15/2018 11:45:54 05/15/20 18 05/15/2018 urina lysis , dipst ick Urobilinogen 1 Not Available In-Of fice Order Internal Use Only DO Not Attach Compendium DO Not Attach Compendium, Do Not Delete/merge, [id number] 05/15/2018 11:45:54 05/15/20 18 05/15/2018 urina lysis , dipst ick Protein Negati ve Not Available In-Office Order Internal Use Only DO Not Attach Compendium DO Not Attach Compendium, Do Not Delete/merge, [id number] 05/15/2018 11:45:54 05/15/20 18 05/15/2018 urina lysis , dipst ick pH 8.5 Not Available In-Office Order Internal Use Only DO Not Attach Compendium DO Not Attach Compendium, Do Not Delete/merge, [id number] 05/15/2018 11:45:54 05/15/20 18 05/15/2018 urina lysis , dipst ick Blood Negati ve Not Available In-Office Order Internal Use Only DO Not Attach Compendium DO Not Attach Compendium, Do Not Delete/merge, [id number] 05/15/2018 11:45:54 05/15/20 18 05/15/2018 urina lysis , dipst ick Specific [place] 1.020 Not Available In-Off ice Order Internal Use Only DO Not Attach Compendium DO Not Attach Compendium, Do Not Delete/merge, [id number] 05/15/2018 11:45:54 05/15/20 18 05/15/2018 urina lysis , dipst ick Ketone Negati ve Not Available In-Office Order Internal Use Only DO Not Attach Compendium DO Not Attach Compendium, Do Not Delete/merge, [id number] 05/15/2018 11:45:54 05/15/20 18 05/15/2018 urina lysis , dipst ick Bilirubin Negati ve Not Available In-Office Order Internal Use Only DO Not Attach Compendium DO Not Attach Compendium, Do Not Delete/merge, [id number] 05/15/2018 11:45:54 05/15/20 18 05/15/2018 urina lysis , dipst ick Glucose Negati ve Not Available In-Office Order Internal Use Only DO Not Attach Compendium DO Not Attach Compendium, Do Not Delete/merge, [id number] 05/15/2018 11:45:54 05/15/20 18 05/15/2018 pregn amna test, urine HCG negati ve Not Available In-Office Order Internal Use Only DO Not Attach Compendium DO Not Attach Compendium, Do Not Delete/merge, [id number] 05/15/2018 11:45:04 07/24/19 17 07/18/2016 US, obste tric, 2nd trime ster No observ ation record ed. [facility] [address] [place], [address], 11/16/2016 12:13:04 08/18/19 17 08/17/2016 US, obste tric, follo w-up No observ ation record ed. [facility] ([facility]) [address] [place], [address], 11/16/2016 12:13:04 02/11/20 19 12/20/2018 CT, neck, soft tissu e, w/ contr ast No observ ation record ed. [facility] Not Available 2018 16:46:48 Result Notes None recorded. Problems Name Problem SNOMED Code Status Onset Date Resolution Date Notes Provider Name and Address Organization Details Recorded Time Nausea 210575768 Completed Clover Arias null, [place] - [facility] 6 09:12:34 Bacterial vaginosis 811062007 Active [place] [facility] 6 09:12:34 Bacterial vaginosis 990121031 Com[place] [facility] 6 09:12:34 Acute urinary tract infection 205848779 Active [place] [facility] 6 09:12:34 Acute urinary tract infection 528877138 Com[place] [facility] 6 09:12:34 Gonorrhea 57498452 Active [place] [facility] 6 09:12:34 Gonorrhea 69989251 Completed [place] [facility] 6 09:12:34 Candidias is 45223167 Active [place] [facility] 6 09:12:34 Candidias is 96181539 Completed [place] [facility] 6 09:12:34 Nausea 878250880 [place] Cl[place]er [place] [facility] 6 09:12:34 Postpartu m state 86193691 [place] Cl[place] [facility] 6 09:12:34 Postpartu m state 53851639 Completed [place] [facility] 6 09:12:34 Anxiety 84982664 Active [place] [facility] 6 09:12:34 Anxiety 71309452 Completed [place] [facility] 6 09:12:34 Depressiv e disorder 36365699 Active [place] [facility] 6 09:12:34 Depressiv e disorder 86064314 Completed [place] [facility] 6 09:12:34 Musculosk eletal pain 783743534 [place] D[place] [facility] 6 11:06:15 Abnormal cervical Papanicol aou smear 045797420 [place] [facility] 6 11:15:38 Deliverie s by Active Jessica LEDA [place] [facility] 7 11:46:06 52259345 Completed 201511/16/2016 Jessica [place] [facility] 7 11:46:10 HPV - Human papilloma virus test positive Completed 2015 Jessica LEDA [place] [facility] 7 11:46:06 HPV - Human papilloma virus test positive Active 2015 Jessica LEDA [place] [facility] 7 11:46:06 Group B Streptoco ccus carrier [id number] 3 Completed 2015 Jessica [place] [facility] 7 11:46:06 Group B Streptoco ccus carrier [id number] 3 Active 2015 Jessica [place] [facility] 7 11:46:06 Deliverie s by 089142835 Completed Jessica LEDA [place] [facility] 7 11:46:06 Obesity 187604929 Active 2016 D[place]ae [place] [facility] 7 12:20:07 Polycysti c ovaries [place] Dontae [place] [facility] 6 11:06:15 Problem Notes None recorded. Procedures Surgical History Date Name Laterality Status Provider Name and Address Organization Details Recorded Time 7 IUD Insertion completed Dontae Davalos [place] - [facility] 11/16/2016 12:18:16 7 Caesarean Section completed Jessica Lie[place]man [place] - [facility] 11/16/2016 11:48:01 6 Date of Last Pap Smear completed Krystal Murray [place] - [facility] 06/16/2016 10:22:58 6 Colposcopy [place] [facility] 09/09/2015 11:14:53 6 Caesarean Section completed Jessica LEDA Lieberman [facility] 11/16/2016 11:48:12 5 IUD Removal completed Dontae Davalos [facility] 07/20/2014 12:06:54 Imaging Results None recorded. Procedure Notes None recorded. Medical Equipment None Reported. Allergies Allergen ID Allergen Name Allergen Category Reaction Reaction Severity Criticality Documentation Date Start Date Code Code System Note Provider Name and Address Organization Details Recorded Time 83651 shiitake mushroom preparati on food other severe Not available 12/09/2014 90382 88 RxNorm patie nt is aller gic to mushr ooms and does not know what kind aller gic to all mushr ooms mouth blist ers Lilliam Sanchez MA [facility], [facility] 5 12:53:05 Medications Name Sig Start Date Stop Date Status Note LastModified by Organization Details LastModified Time nitrofura ntn cap 100mgnitr ofurantoi n monohydra te/macroc rystals active Not Available Not Available Not Available fluconazo le tab 150mgfluc onazole active Not Available Not Available Not Available metronida zol tab 500mgmetr onidazole active Not Available Not Available No t Available tab 27-0.8mgp renatal active Not Available Not Available Not Available cephalexi n 500 mg caps active Not Available Not Available Not Available azithromy misa tab 250mgazit hromycin active Not Available Not Available Not Available hydrocodo ne/acetam inophen 5-325 mgtabs active Not Available Not Available Not Available progester one 100 mg caps active Not Available Not Available Not Available amoxicill in 500 mg capsule TAKE 1 CAPSULE BY MOUTH THREE TIMES DAILY EVERY 8 HOURS active Not Available Not Available No t Available Mirena 21 mcg/24 hr (up to 8 years) 52 mg intrauter ine device Take 1 device by intraute rine route. 2016 active Not Available Not Available Not Avai lable metformin 500 mg tablet Take 1 tablet twice a day by oral route. 2014 active Not Available Not Available Not Avai lable bupropion HCl SR 150 mg tablet,12 hr sustained -release Take 1 tablet twice a day by oral route. active Not Available Not Available No t Available acetamino phen 325 mg tablet active Not Available Not Available No t Available Vitamin B-6 25 mg tablet Take 1 tablet 3 times a day by oral route. 08/09 completed Not Available Not Available Not Available citalopra m 40 mg tablet Take 1 tablet every day by oral route. 09/06 completed Not Available Not Available Not Available azithromy misa 250 mg tablet TAKE 2 TABLETS (500 MG) BY ORAL ROUTE ONCE DAILY FOR 1 DAY THEN 1 TABLET (250 MG) BY ORAL ROUTE ONCE DAILY FOR 4 DAYS 08/09 completed Not Available Not Available Not Available ibuprofen 800 mg tablet TAKE 1 TABLET BY MOUTH THREE TIMES DAILY NEEDED FOR CRAMPS active Not Available Not Available No t Available fluconazo le 150 mg tablet Take 1 tablet by oral route. active Not Available Not Available No t Available sumatript an 100 mg tablet Take 1 tablet as needed by oral route as needed. 09/06 completed Not Available Not Available Not Available hydrocodo ne 5 mg-acetam inophen 325 mg tablet active Not Available Not Available Not Available Keflex 500 mg capsule Take 1 capsule every 12 hours by oral route. 08/09 completed Not Available Not Available Not Available Prometriu m 100 mg capsule Take 1 capsule twice a day by oral route. 2014 active Not Available Not Available Not Avai lable penicilli n V potassium 500 mg tablet TAKE 1 TABLET BY MOUTH EVERY 6 HOURS FOR 10 DAYS active Not Available Not Available No t Available Zyrtec 10 mg tablet Take 1 tablet every day by oral route. 09/06 completed Not Available Not Available Not Available metronida zole 500 mg tablet Take 1 tablet twice a day by oral route for 7 days. active Not Available Not Available No t Available hydroxyzi ne HCl 50 mg tablet Take 1 tablet twice a day by oral route. 04/06 completed Not Available Not Available Not Available sulfameth oxazole 800 mg-trimet hoprim 160 mg tablet 04/06 completed Not Available Not Available Not Available tramadol 50 mg tablet TAKE 1 TABLET BY MOUTH EVERY 8 HOURS NEEDED FOR PAIN active Not Available Not Available No t Available Vitamin tablet Take 1 tablet every day by oral route. 2016 active Not Available Not Available Not Avai lable Zofran 4 mg tablet Take 1 tablet every 8 hours by oral route as needed for 2 days. 2014 active Not Available Not Available Not Avai lable oxycodone -acetamin ophen 5 mg-325 mg tablet Take 1 tablet every 6 hours by oral route. active Not Available Not Available No t Available ceftriaxo ne 1 gram solution for injection Take 500 mg by injectio n route. 2014 active Not Available Not Available Not Avai lable citalopra m 20 mg tablet Take 1 tablet every day by oral route for 30 days. 08/09 completed Not Available Not Available Not Available dicyclomi ne 20 mg tablet 04/06 completed Not Available Not Available Not Available ferrous sulfate 325 mg (65 mg iron) tablet Take 1 tablet twice a day by oral route. active Not Available Not Available No t Available metformin 1,000 mg tablet Take 1 tablet twice a day by oral route. 08/09 completed Not Available Not Available Not Available Cipro 500 mg tablet Take 1 tablet every 12 hours by oral route. 04/06 completed Not Available Not Available Not Available buspirone 10 mg tablet Take 1 tablet 3 times a day by oral route. 09/06 completed Not Available Not Available Not Available Effexor XR 150 mg capsule,e xtended release Take 1 capsule every day by oral route. 04/06 completed Not Available Not Available Not Available progester one micronize d 200 mg capsule Take 1 capsule twice a day by oral route. 08/09 completed Not Available Not Available Not Available ondansetr on 4 mg disintegr ating tablet 04/06 completed Not Available Not Available Not Available sertralin e 50 mg tablet TAKE 1 TABLET BY MOUTH EVERY DAY active Not Available Not Available No t Available naproxen 500 mg tablet active Not Available Not Available Not Available Adult Low Dose Aspirin 81 mg tablet,de layed release Take 1 tablet every day by oral route. 08/09 completed Not Available Not Available Not Available escitalop valentín 10 mg tablet Take 1 tablet every day by oral route. active Not Available Not Available No t Available aripipraz ole 5 mg tablet Take 1 tablet every day by oral route. active Not Available Not Available No t Available nitrofura ntoin monohydra te/macroc rystals 100 mg capsule Take 1 capsule every 12 hours by oral route for 10 days. 2016 active Not Available Not Available Not Avai lable Vitamin D3 50 mcg (2,000 unit) capsule Take 1 capsule every day by oral route. 08/09 completed Not Available Not Available Not Available 28 mg iron-800 mcg tablet active Not Available Not Available Not Available calcium 600 mg (as carbonate )-vitamin D3 20 mcg (800 unit) tablet Take 1 tablet twice a day by oral route. active Not Available Not Available No t Available Fetzima 40 mg capsule,e xtended release Take 1 capsule every day by oral route. 04/06 completed Not Available Not Available Not Available Contrave 8 mg-90 mg tablet,ex tended release Take 2 tablets twice a day by oral route. 2016 active [employer] Not Available Not Available Not Available Vitals Date Recorded Body height Body weight Body mass index (BMI) Systolic blood pressure Diastolic blood pressure Provider Name and Address Organization Details Last Updated DateTime 08/09/2016 162.56 cm 22447.99 007 g 36.2 kg/m2 110 mm[Hg] 74 mm[Hg] Krystal Murray MA [facility] 7 15:01:23 Date Recorded Body height Body mass index (BMI) Systolic blood pressure Diastolic blood pressure Provider Name and Address Organization Details Last Updated DateTime 09/06/2016 162.56 cm 37.2 kg/m2 110 mm[Hg] 60 mm[Hg] Jessica Lieberman MA [facility] 09/06/2016 11:46:27 Date Recorded Body weight Provider Name an d Address Organization Details Last Updated DateTime 09/06/2016 71153.56671 g Lilliam Sanchez MA [facility] 09/06/2016 12:23:07 Date Recorded Body height Provider Name an d Address Organization Details Last Updated DateTime 11/16/2016 162.56 cm Jessica Lieberman MA [facility] 11/16/2016 11:35:58 Date Recorded Body weight Systolic blood pressure Diastolic blood pressure Provider Name and Address Organization Details Last Updated DateTime 05/15/2018 50540.37 g 100 mm[Hg] 68 mm[Hg] Mick Leo MA [facility] 05/15/2018 11:40:43 Social History Question Answer Notes LastModified by Organizat ion Details LastModified Time Tobacco Smoking Status Never Smoker Milagroshanna Walls MA [facility], [place] - [facility] 07/08/2014 14:56:29 Do You Have An Advance Directive? No Information not available 12/09/2014 If You Are , What Was Your Level Of Alcohol Consumption Prior To ? Occasional [email or web address] Information not available 12/09/2014 How Many Years Have You Consumed Alcohol? 0 [email or web address] Information not available 08/09/2016 Is Anesthesia Consult Planned? Yes Wants An Epidural [email or web address] Information not available 12/09/2014 Plan Yes [email or web address] Information no t available 12/09/2014 Is Blood Transfusion Acceptable In An Emergency? Yes [email or web address] Information not available 12/09/2014 What Is Your Level Of Caffeine Consumption? Moderate [email or web address] Information not available 12/09/2014 Live With Cats/exposure To Cat Litter No [email or web address] Information not available 12/09/2014 How Much Tobacco Do You Chew? None [email or web address] Information not available 12/09/2014 What Type Of Diet Are You Following? REGULAR [email or web address] Information not available 12/09/2014 Which Illicit Or Recreational Drugs Have You Used? Pt Denies [email or web address] Information not available 12/09/2014 Education 12 [email or web address] Information no t available 12/09/2014 Have There Been Any Changes To Your Family Or Social Situation? No Information not available 12/09/2014 Frequent Air Travel No [email or web address] Information not available 12/09/2014 Are There Any Guns Present In Your Home? No Information not available 05/15/2018 Hard Of Hearing Or Deaf In One Or Both Ears? Yes Deaf In Left Ear Information not available 05/15/2018 Illicit Drugs Pre- Pt Denies [email or web address] Information not available 12/09/2014 How Many Years Have You Used Illicit Or Recreational Drugs? 0 [email or web address] Information not available 12/09/2014 Legally Blind In One Or Both Eyes? No Information not available 05/15/2018 Live Alone Or With Others? With Others Information not available 12/09/2014 Marital Status Single [email or web address] Informatio n not available 12/09/2014 What Was The Date Of Your Most Recent Tobacco Screening? 05/15/2018 Information not available 01/09/2019 How Many Children Do You Have? 2 [email or web address] Information not available 12/09/2014 Performs Monthly Self-breast Exam? Yes Information not available 08/05/2015 Do You Use Protection During Sex? Usually Information not available 08/05/2015 What Is Your Relationship Status? Single Information not available 08/05/2015 Seat Belts Used Routinely Yes [email or web address] Information not available 12/09/2014 Are You Sexually Active? Yes [email or web address] Information not available 12/09/2014 Smoke Alarm In Home Yes Information not available 05/15/2018 Do You Have Smoke And Carbon Monoxide Detectors In Your Home? Yes Information not available 06/16/2016 Are You Passively Exposed To Smoke? No Information not available 06/16/2016 How Much Tobacco Do You Smoke? No [email or web address] Information not available 12/09/2014 Smoking Pre- No Information not available 12/09/2014 General Stress Level Low [email or web address] Information not available 12/09/2014 Do You Use Sunscreen Routinely? No [email or web address] Information not available 12/09/2014 Supplements Vitamins Information not available 12/09/2014 How Many Years Have You Smoked Tobacco? 0 Information not available 12/09/2014 Sex: Unknown Functional Status Question Answer Note LastModified by Organizat ion Details LastModified Time What is your level of alcohol consumption? None none since [email or web address] Information not available 12/09/2014 Are you currently employed? 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 Moderate [email or web address] Information not available 12/09/2014 Mental Status None recorded. Family History Relationship Description Onset Age of this Age Resolved Age Notes LastModified by Organization Details LastModified Time Mother Malignant tumor of cervix [email or web address] Not available 09/08 11:06:26 Maternal Grandmother Malignant tumor of cervix [email or web address] Not available 09/08 11:06:26 Medical History Condition Response Coronary Artery Disease N Kidney Cyst N Blood Diseases N Hyperthyroidism N Blood disorders N Blood Transfusion N MRSA N Emphysema N Depression N COPD N Blood Clots N Pneumonia Y Premature N Peripheral Arterial Disease N Edema N TIA N Headaches/Migraines N Anxiety Disorder N Obesity N Polyps N Infertility N Acid Reflux (GERD) Y Hematuria N Stroke N Neck Injury N Polio N Hospital Admission other than N Neurologic Disorder N Other Sleep Disorders N Rheumatoid Arthritis N Fibromyalgia N Abdominal Aortic Aneurysm Repair N Kidney Disease N Heart Conditions N Heart Disease/Heart Problems N Hospitalizations N Brain Tumors N Acne N Skin Problems N Eating Disorder N Meningitis N Constipation N Tuberculosis N Cerebral Palsy N Myocardial Infarction N Asthma N Substance Abuse N Peripheral Vascular Disease N Vertigo N Sleep Disorder N Cirrhosis N Pulmonary Embolism N Chicken Pox N Hematologic Disease N Flomax Use Past or Present N Anxiety/Depression N Thyroid Disease N Colon Cancer N Lung Disease N Glaucoma N Developmental or Behavioral Disorders N Bipolar N Pacemaker N Diverticulitis/Diverticulosis N Orthopedic Problems N Anesthesia Complications N Orthotics N Head Injury/Concussion N Congenital Anomalies N Marroquin Bite N Chronic Kidney Disease N Endometriosis N Liver Disease N Schizophrenia N Dialysis N Speech Delay N Chronic Obstructive Pulmonary Disease N Parkinson's Disease N Thyroid Problems N GI Problems N Developmental Delay N Anemia N Multiple Sclerosis N Immune System Disorder N Colon Polyps N Heart Attack (PR) N Diabetes N Cardiomyopathy N Blood Transfusions N Heart Problems/Murmur Y Eye Trauma N Congestive Heart Failure (CHF) N Valvular Heart Disease N Hyperlipidemia N Double Vision N Abuse/Domestic Violence N Hepatitis B N Lupus N Epilepsy/Seizures N Reflux/GERD Y Aneurysm N Heart Disease N Bronchitis N Pre-Eclampsia N Hypertension N Other N Gout N High Blood Pressure N Atrial Fibrillation N Kidney Stones N Head Trauma/Injury N Congenital Heart Disease N Spine Problems N Gastrointestinal Disease N Lung Mass N Sinusitis N Obstructive Sleep Apnea N Muscle, Joint, or Bone Problems N Autoimmune disease N Vision or Eye Problems N Arthritis N Blood Clot N Cancer N Seasonal allergies Y Leg or Foot Ulcers N Raynaud's Disease N Aortic Aneurysm N Arrhythmia N Headaches Y Heart Problems N Ambloypia N Ear or Hearing Problems N Hyperparathyroidism N Migraines Y Artificial Joints N Kidney or Bladder Problems N NSAID Use N Encephalitis N PTSD N Ulcers N Prostate Hypertrophy N Bleeding Disorder N AIDS/HIV N Urinary Tract Infection Y Back Problems N Allergies N Atrial Flutter N GERD/Reflux Y Hepatitis N Autism Spectrum Disorder (ASD) N Breast Cancer N Hernia N Hypothyroidism N Breast Problem N Genitourinary Disease N Deep Vein Thrombosis N Varicose Veins N Cystic Fibrosis N Hearing Loss N Developmental Problems N Carotid Disease N Vitamin D Deficiency N ADHD N Bladder or Kidney Problems N High Cholesterol N [place] N Valvular Abnormalities N Psychiatric/Mental Health Condition N Organ Transplant N Foot Deformity N Allergies/Hayfever N Dyslipidemia N Hyponatremia N Diabetic Eye Disease N Osteoporosis/Osteopenia N Back Pain N Proteinuria N Mental Illness N Neurological Problems N Ovarian Cancer N Bedwetting N Seizures/Epilepsy N Kidney Failure N Ocular trauma N Diverticulitis N Dementia N Sleep Apnea N Mental Problems N Warfarin Management N Osteoporosis N Gynecological History Statement/Question Response Abnormal Pap Y Flow Light On BCP's at Conception? N STIs/STDs N HPV Vaccine Y Duration of Flow (days) 3 Age at Menarche 12 Current Control Method IUD Age at First Child 14 Frequency of Cycle (Q days) Sexually Active? Y Menses Monthly N Date of Last Pap Smear 04/06/2016 Sexual Problems? N LMP Approximate Desired Control Method IUD Obstetrics History GPAL:G 4 P 2 2 0 4 Type Value Multiple Births 0 Full Term 2 Induced 0 Spontaneous 0 Premature 2 Living 4 Ectopics 0 Total 4 Immunizations Vaccine Type Date Status Note Provider Nam e and Address Organization Details Recorded Time Influenza, split virus, trivalent, preservative 5 completed Not Available [email or web address] 07/05/2019 02:32:02 Past Encounters Encounter ID Performer Location Encounter Start Date Encounter Closed Date Diagnosis/Indication Diagnosis SNOMED-CT Code Diagnosis ICD10 Code Diagnosis Note [id number] [facility] [address] [place] [id number] 07/08/2014 14:18:57 07/08/2014 15:22:07 Polycystic ovaries [id number] Family ramu nning surveillance [id number] Administra tion of influenza vaccine [id number] MD Lashaun Dawson (CAN CON[employer]YOR FEEDER) [address] [place] [address] [phone] 0 12/09/2014 11:51:46 12/09/2014 13:20:23 [id number] Bacterial vaginosis 731959427 Acute urin rj tract infection 446737470 [id number] MD Lashaun Dawson (CAN CONVEYOR FEEDER) [address] [place] [address] [id number] 01/08/2015 15:39:13 01/08/2015 16:09:58 Gonorrhea [id number] [facility]ED[facility] [address] [place] [address] [phone] 0 01/13/2015 16:09:14 01/13/2015 18:03:51 [id number] Streptococcus carrier 566545337 Normal [id number] Dontae Davalos MD [facility] (CAN CONVEYOR FEEDER) [address] [place] [address] [id number] 0 02/15/2015 16:04:14 02/15/2015 17:57:53 Normal 78343922 Streptococcus carrier [id number] Jose De Jesus Hayden MD [facility] (CAN CONVEYOR FEEDER) [address] [place] [address] [id number] 03/17/2015 14:34:57 03/17/2015 16:10:44 Normal [id number] Dontae Davalos MD [facility] (CAN CONVEYOR FEEDER) [address] [place] [address] [id number] 0 04/26/2015 09:45:16 04/26/2015 11:03:09 Normal 90769046 Z33.1 [id number] Dontae Davalos MD [facility] (CAN [employer]OR FEEDER) [address] [place] [address] [id number] 0 06/14/2015 11:37:26 06/14/2015 12:49:49 Normal 83261561 Z33.1 [id number] Jose De Jesus Hayden MD [facility] (CAN CONVEYOR FEEDER) [address] [place] [address] [id number] 0 07/01/2015 11:20:11 07/01/2015 13:03:33 care [id number] Z39.2 Postoperative visit 1836 01861 Z09 19 year old s/p primary for abuptio placenta. 2weeks ago at [facility]. No complicati ons, patient very anxious to return to work. States work entails work 3 hours a day at her desk. No lifting or strenous exercise at all. Note completed for return. Wishes to schedule tubal ligation CORA. Will have scheduled in 4 weeks. [id number] [facility]ED[facility]) [address] [place] [address] [id number] 0 08/05/2015 10:35:39 08/05/2015 12:27:22 state 28878199 Z39.2 Insertion of intrauterine contraceptive device 44160008 Z30.430 Musculoskeletal pain 279 761705 M79.1 Persissten t pain of rectus abdominus sheath post . Will schedule physical therapy. [id number] MD Lashaun Dawson (CAN CON[employer]OR FEEDER) [address] [place] [address] [id number] 0 09/09/2015 10:05:47 09/09/2015 11:46:05 Anxiety 02913683 F41.9 Abnormal c ervical Papanicolaou smear 927881933 R87.619 Uses IUD (intrauterine device) contraception 060790438 Z97.5 Family ramu nning surveillance 200914893 Z30.09 Deliveries by [id number] O82 Female sterilization 608 68863 Z30.2 Depressive disorder 3548 9007 F32.9 [id number] MD Lashaun Dawson (CAN CON[employer]YOR FEEDER) [address] [place] [address] [id number] 0 04/06/2016 10:19:16 04/06/2016 11:51:24 Gynecologic examination 72739045 Z01.419 Family ramu nning surveillance 759406992 Z30.09 Venereal d isease screening 503337442 Z11.3 Polycystic ovaries 55871 008 E28.2 Bacterial vaginosis 4197 73376 N76.0 Generalize d anxiety disorder 00672668 F41.1 [id number] MD Lashaun Billings (CAN CON[employer]OR FEEDER) [address] [place] [address] [id number] 0 06/16/2016 09:50:38 06/20/2016 11:08:29 Routine care 518213565 Z34.91 Morning sickness 3548904 6 O21.9 [id number] MD Lashaun Dawson (CAN CON[employer]OR FEEDER) [address] [place] [address] [id number] 0 07/12/2016 11:32:04 07/17/2016 14:04:58 Routine care 888472870 Z34.82 Family ramu nning surveillance 459817264 Z30.09 Depressive disorder 3548 9007 F32.9 Acute uppe r respiratory infection 59507985 J06.9 [id number] [facility] FEED[facility]) [address] [place] [address] [id number] 0 08/09/2016 14:36:23 08/10/2016 13:19:32 Routine care 561113699 Z34.82 Deliveries by [id number] O82 Depressive disorder 3548 9007 F32.9 Generalize d anxiety disorder 51085678 F41.1 [id number] MD Lashaun Dawson (CAN CON[employer]YOR FEEDER) [address] [place] [address] [id number] 0 09/06/2016 11:24:10 09/06/2016 12:34:51 Routine care 391931098 Z34.[address] reptococcus carrier 6259373814 103 Z22.330 Deliveries by [id number] O82 Depressive disorder 3548 9007 F32.9 Vitamin D deficiency 347 63233 E55.9 [id number] MD [facility] ([employer] CON[employer]OR FEEDER) [address] [place] [address] [id number] 0 11/16/2016 11:18:37 11/16/2016 14:26:41 care 236652154 Z39.2 Exposure t o sexually transmissible disorder 721922459 Z20.2 Acute urin rj tract infection 984421114 N39.0 state 1025541 1 Z39.2 Obesity 044741412 E66.9 Insertion of intrauterine contraceptive device 32019561 Z30.430 depression 58 916302 O99.345 pt was given Bupropion via Contrave [id number] MD Lashaun Billings (CAN CON[employer]OR FEEDER) [address] [place] [address] [id number] 0 05/15/2018 11:14:57 05/15/2018 16:26:32 IUD check 892303119 Z30.431 IUD threads longer. Trimmed the IUD threads. Made Patient standup after that and patient say she does not feel sharp pain any more. Atypical s quamous cells of undetermined significance on cervical Papanicolaou smear 003117353 R87.610 She had h/o ASCUS. Counseled about it and safe sex. PAP done today. Bacterial vaginosis 4197 23197 N76.0 Counseled about it. Gynecologi c examination 40443378 Z01.419 Age appropriat e counseling done. Obese 493223456 E66.9 Counseled About weight loss, diet and excercise. 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 Health Concerns Section Related Observation LastModified by Organization Detai ls LastModified Time None Recorded Concern Status LastModified by Organization Details LastModified Time None Recorded Advance Directives Directive N: Payers Encounter Date Sequence Insurance Name Policy Number Policy Andres Covered Member ID Andres Member ID Guarantor Name 08/09/2016 1 FORMERLY [facility] (MEDICAID HMO) Soniaember Reyes Zaidamwell [id number] Rowenaa Shemwell 09/06/2016 1 FORMERLY [facility] (MEDICAID HMO) Sonianitesha L Shemwell [id number] Soniairra Shemwell 11/16/2016 1 FORMERLY [facility] (MEDICAID HMO) Rowenaa L Shemwell [id number] Ceirra Shemwell 05/15/2018 1 FORMERLY [facility] (MEDICAID HMO) Rowenaa L Shemwell [id number] [facility] Notes Date Note Type Note Provider Name and Address Organization Details Recorded Time 08/09/2016 text/html OB ProblemReport ed bypatient.Associated Symptoms:no abdominal pain; no cramping; no contractions; no bleeding; no ROM; no vaginal discharge; no vaginal/vulvar itching or irritation; no dysuria; no frequency; no urgency; no hematuria; no fever; no nausea; no emesis; no constipation; no diarrhea/loose stool; no edema; no visual changes; no headache; no dizziness 20YO [address] W SATHISH Davalos [facility] 08/09/2016 18:49:24 09/06/2016 text/html OB ProblemReport ed bypatient.Associated Symptoms:no abdominal pain; no cramping; no contractions; no bleeding; no ROM; no vaginal discharge; no vaginal/vulvar itching or irritation; no dysuria; no frequency; no urgency; no hematuria; no fever; no nausea; no emesis; no constipation; no diarrhea/loose stool; no edema; no visual changes; no headache; no dizziness 20YO 24W3d SATHISH Davalos null, [facility] 09/06/2016 13:13:40 11/16/2016 text/html VisitReported bypatient.Onset/Jos ng:date of delivery: (09-24-16) Quality:repeat LST C/S Context:complication s of : PTL; complications of labor: chorio; complications: endometritis; feeding choice: bottle; depression; good support from partner/family Associated Symptoms:no abnormal bleeding; no pelvic pain; laceration well healed; no constipation; no fecal incontinence; no dysuria; no urinary incontinence; no fever; no problems; no mastitis 20YO here for PPP and IUD insertion Lilliam Sanchez MA null, [facility] 11/16/2016 13:40:38 05/15/2018 text/html Annual GYNReport ed bypatient.History:no gynecologic complaints Menstrual cycle:Light period on IUD Urinary symptoms:No hematuria; No incontinence Vulva:No genital lesion Vagina:Normal vaginal discharge Breast:No breast pain; No breast lump; No nipple discharge Current Contraception:Intrau terine device (iud) Sexual complaints:No sexual complaints; No pain during intercourse; Normal libido Menopausal Symptoms:No menopausal symptoms; Normal vaginal lubrication Psychological symptoms:No depression; No anxiety; No PMDD Preventive measures:Encourage self breast examination; Encourage regular exercise; Encourage no tobacco use; Encourage regular mammograms starting age 40; Followed with yearly pap smears; History of abnormal pap smear/cervical dysplasia; Needs to schedule mammogram; also counseled about calcium intake and advised to start over the counter calcium treatment. Dr. Davalos patient. Since he is in saw patient. Patient say she has sharp vaginal pain since IUD was placed. She say she has to take multiple breaks at work. She feels some thing is pinching her vagina when she stands up. Patient denies any active vaginal bleeding today, pelvic pain or vaginal discharge. Cassia Gilbert MD Attn: Accounting,[address] [place], [address], [facility] 05/15/2018 16:01:26 OBGyn Episode Ob Episode Information Episode Created Date Number of Fetuses Patient Bloodtype Patient rh Status Prepregnancy Weight lbs Domestic Partner Domestic Partner Phone Father Name Diesel Engine Mechanic Apprentice Status 12/10/19 15 1 CLOSED Fetus Data First Name Last Name Admitted to NICU Weight (g) Sex Living Outcome Pediatric Complications Fetus ID Race Codes Race Delivery Type 3345.24 1 M Full Term 23748 Vaginal Sonu Calculation Initial Sonu Date Initial Exam [...] Complications Tubal Sterilization Discharge Date Comments 1 Regional-Ep idural 37 Sascha Discharge Information Feeding Method Contraceptive Method Maternal HG B and HCT Levels Ob Episode Information Episode Created Date Number of Fetuses Patient Bloodtype Patient rh Status Prepregnancy Weight lbs Domestic Partner Domestic Partner Phone Father Name Diesel Engine Mechanic Apprentice Status 12/10/19 15 1 CLOSED Fetus Data First Name Last Name Admitted to NICU Weight (g) Sex Living Outcome Pediatric Complications Fetus ID Race Codes Race Delivery Type 3798.83 3 M Full Term 04840 Vaginal Sonu Calculation Initial Sonu Date Initial Exam [...] Complications Tubal Sterilization Discharge Date Comments 3 Regional-Ep idural 39 Ty Discharge Information Feeding Method Contraceptive Method Maternal HG B and HCT Levels Ob Episode Information Episode Created Date Number of Fetuses Patient Bloodtype Patient rh Status Prepregnancy Weight lbs Domestic Partner Domestic Partner Phone Father Name Diesel Engine Mechanic Apprentice Status 08/05/19 16 1 DELETED Sonu Calculation Initial Sonu Date Initial Exam [...] Post Complications Tubal Sterilization Discharge Date Comments 6 General 36 Keigan Discharge Information Feeding Method Contraceptive Method Maternal HG B and HCT Levels Ob Episode Information Episode Created Date Number of Fetuses Patient Bloodtype Patient rh Status Prepregnancy Weight lbs Domestic Partner Domestic Partner Phone Father Name Diesel Engine Mechanic Apprentice Status 12/10/19 15 1 170 decline s Marixa Gil PERSONNEL RECRUITER CLOSED Fetus Data First Name Last Name Admitted to NICU Weight (g) Sex Living Outcome Pediatric Complications Fetus ID Race Codes Race Delivery Type Krishan Kenny ell true 3203.49 35 M Prematur e Ped. Marixa Gil 69263 2106-3 White Problems Problem Notes Problem Name Start Date End Date Resolution Snomed Code Not e Bacterial vaginosis 893673719 Acute urinary tract infection 261385075 Gonorrhea 99278684 Candidiasis 15730557 Nausea 588012003 state 80501120 Anxiety 68621830 Depressive disorder 45599418 Sonu Calculation Initial Sonu Date Initial Exam Date Initial Exam Provider Initial Ultrasound Date Last Menstrual Period Date Ultra Sound Weeks Gestation 07/21/2015 12/09/2014 [email or web address] 12/11/2014 10/17/2014 8 Eighteen To Twenty Week Sonu Update Ultra Sound Date Fundal Height At Umbil Quickening Date Ultra Sound Latest Weeks Gestation Final Sonu Confirmed By Final Sonu Confirmed Date Final Sonu Date Ultra Sound Latest Days Gestation 0 [email or web address] 03/17/2015 07/21/19 16 0 Pre- Flowsheet Flowsheet Date 12/09/2014 Dixon Score Blood Edema Fundus Height Fundus Units Glucose Ketones Leukocytes Nitrite Labor Signs Protein Cervic Dilation Cervic Effacement Cervic Station Type Weight in lbs Pre/Post Dialysis Refused 170.616379538770 BP Diastolic BP Location Tested BP Systolic BP Type 68 102 sitting Fetus Heart Rate Present Fetus Movement Comments Flowsheet Date 01/08/2015 Dixon Score Blood Edema Fundus Height Fundus Units Glucose Ketones Leukocytes Nitrite Labor Signs Protein Cervic Dilation Cervic Effacement Cervic Station Type Weight in lbs Pre/Post Dialysis Refused BP Diastolic BP Location Tested BP Systolic BP Type Fetus Heart Rate Present Fetus Movement Comments Flowsheet Date 01/13/2015 Dixon Score Blood Edema Fundus Height Fundus Units Glucose Ketones Leukocytes Nitrite Labor Signs Protein Cervic Dilation Cervic Effacement Cervic Station neg none 13 wks none negative none neg Type Weight in lbs Pre/Post Dialysis Refused 170.350328289268 BP Diastolic BP Location Tested BP Systolic BP Type 72 116 sitting Fetus Heart Rate Present A 152 Present Fetus Movement Comments repeat us Flowsheet Date 02/15/2015 Dixon Score Blood Edema Fundus Height Fundus Units Glucose Ketones Leukocytes Nitrite Labor Signs Protein Cervic Dilation Cervic Effacement Cervic Station neg none 17 wks none negative Other (see comments ) neg Type Weight in lbs Pre/Post Dialysis Refused 175.779030633899 BP Diastolic BP Location Tested BP Systolic BP Type 70 166 sitting Fetus Heart Rate Present A 148 Present Fetus Movement A No Comments spotting, started on Prometr ium Flowsheet Date 03/17/2015 Dixon Score Blood Edema Fundus Height Fundus Units Glucose Ketones Leukocytes Nitrite Labor Signs Protein Cervic Dilation Cervic Effacement Cervic Station trace none 22 wks none negative none trace Type Weight in lbs Pre/Post Dialysis Refused 187.608981387845 BP Diastolic BP Location Tested BP Systolic BP Type 62 110 sitting Fetus Heart Rate Present A 142 Fetus Movement Comments No complaints todayno dysuri a, no vaginal odorsno edema Flowsheet Date 04/26/2015 Dixon Score Blood Edema Fundus Height Fundus Units Glucose Ketones Leukocytes Nitrite Labor Signs Protein Cervic Dilation Cervic Effacement Cervic Station neg none 28 cm none negative none trace Type Weight in lbs Pre/Post Dialysis Refused 194.188548294124 BP Diastolic BP Location Tested BP Systolic BP Type 58 102 sitting Fetus Heart Rate Present A 140 Present Fetus Movement A Yes Comments Flowsheet Date 06/14/2015 Dixon Score Blood Edema Fundus Height Fundus Units Glucose Ketones Leukocytes Nitrite Labor Signs Protein Cervic Dilation Cervic Effacement Cervic Station neg none 35 cm none negative none neg 0cm 20% - 3 Type Weight in lbs Pre/Post Dialysis Refused 203.30468994493 BP Diastolic BP Location Tested BP Systolic BP Type 64 114 Fetus Heart Rate Present A 134 Present Fetus Movement A Yes Comments Flowsheet Date 07/01/2015 Dixon Score Blood Edema Fundus Height Fundus Units Glucose Ketones Leukocytes Nitrite Labor Signs Protein Cervic Dilation Cervic Effacement Cervic Station Type Weight in lbs Pre/Post Dialysis Refused 188.564793932787 BP Diastolic BP Location Tested BP Systolic BP Type 66 98 sitting Fetus Heart Rate Present Fetus Movement Comments Flowsheet Date 08/05/2015 Dixon Score Blood Edema Fundus Height Fundus Units Glucose Ketones Leukocytes Nitrite Labor Signs Protein Cervic Dilation Cervic Effacement Cervic Station Type Weight in lbs Pre/Post Dialysis Refused 190.989415534818 BP Diastolic BP Location Tested BP Systolic BP Type 76 114 sitting Fetus Heart Rate Present Fetus Movement Comments Menstrual History Last Menstrual Date Menses Monthly On Bcp Conception Prior Menses Frequency Hcg Plus Date Menarche Onset Age 0510/17/2014 false false 5 16 Genetic Screening And Infection History Question Response Note Patient's Age Will Be 35 Yea rs Or Older At Estimated Date of Delivery false Thalassemia (Emirati, Wolof, Mediterranean, Or Background): MCV < 80 false Neural Tube Defect (Meningom yelocele, Spina Bifida, Or Anencephaly) false Congenital Heart Defect false Down Syndrome false Ronan-Sachs (eg, Baptism, Cajun, Belarusian-Botswanan) f alse Radha Disease false Sickle Cell Disease Or Trait () false Hemophilia Or Other Blood Disorders false Muscular Dystrophy false Cystic Fibrosis false Wilbarger's Chorea false Mental Retardation/Autism false If Yes, Was Person Tested For Fragile X? false Other Inherited Genetic Or Chromosomal Disorder false Maternal Metabolic Disorder (eg, Type 1 Diabetes , PKU) false Patient Or Baby's Father Had A Child With Defects Not Listed Above false Recurrent Loss, Or A Stillbirth false Medications (including Suppl ements, Vitamins, Herbs, OTC Drugs), Illicit/Recreational Drugs, Alcohol true v itamin If Yes, Agent(s) And Strength/Dosage false Any Other Genetic History false Live With Someone With TB Or Exposed To TB false Patient Or Partner Has History Of Genital Herpes false Rash Or Viral Illness Since Last Menstrual Perio d false History Of STD, Gonorrhea, Chlamydia, HPV, Syphi lis true Other Infection History false Plans and Education First Trimester Discussed Date Discussion Item Discussion Note Discuss ed By 01/08/2015 Anticipated course of care [email or web address] 01/08/2015 Alcohol 01/08/2015 Intimate partner violence [email or web address] 01/08/2015 Environmental/work hazards mi [email or web address] 01/08/2015 Screening for aneuploidy [email or web address] [email or web address] 01/08/2015 Nutrition counseling ; special diet; dietary precautions (mercury, listeriosis) 01/08/2015 Childbirth classes/hospital facilities 01/08/2015 HIV and other routine tests 01/08/2015 Risk factors identif ied by history [email or web address] 01/08/2015 Weight gain counseling david etienne01/08/2015 Exercise 01/08/2015 Teratogens 01/08/2015 Use of any medicatio ns (including supplements, vitamins, herbs, or OTC drugs) [email or web address] 01/08/2015 Undecided 01/08/2015 Sexual activity 01/08/2015 Tobacco/smoking cess ation counseling (ask, advise, assess, assist, and arrange) 01/08/2015 Illicit/recreational drugs j [email or web address] 01/08/2015 Dental care 01/08/2015 Travel 01/08/2015 Seat belt use 01/08/2015 Indications for ultrasonography 01/08/2015 Avoidance of saunas or hot tubs [email or web address] 01/08/2015 Toxoplasmosis precautions (cats/raw meat) Second Trimester Discussed Date Discussion Item Discussion Note Discuss ed By Third Trimester Discussed Date Discussion Item Discussion Note Discuss ed By Delivery Information Delivery Date Delivery Type Labor Anesthesia Weeks Gestation Incision Type Labor Labor Length Hrs Delivered By Post Complications Tubal Sterilization Discharge Date Comments 6 None General 36 Low Transvers e true Hayden None false 06/28/2015 Tubal Ligation Papers Signed and in [place] Discharge Information Feeding Method Contraceptive Method Maternal HG B and HCT Levels Bottle mirena Ob Episode Information Episode Created Date Number of Fetuses Patient Bloodtype Patient rh Status Prepregnancy Weight lbs Domestic Partner Domestic Partner Phone Father Name Diesel Engine Mechanic Apprentice Status 12/30/20 16 1 A Positive 203 CLOSED Fetus Data First Name Last Name Admitted to NICU Weight (g) Sex Living Outcome Pediatric Complications Fetus ID Race Codes Race Delivery Type Enrique Wolff true 1162.32 95 F true Prematur e 53144 2106-3 White Problems Problem Notes Ultrasound states a baby gir l, Amy Cowart, undecided on feeding method, junior network engineer Marixa Gil, repeat . PPBC is going to be decided. Diegompson [employer] 08/09/2016. 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 04/06/2016 258899957 Deliveries by 04 Sonu Calculation Initial Sonu Date Initial Exam Date Initial Exam Provider Initial Ultrasound Date Last Menstrual Period Date Ultra Sound Weeks Gestation 12/24/2016 06/16/2016 [facility] 05/10/2016 03/17/2016 7 Eighteen To Twenty Week Sonu Update Ultra Sound Date Fundal Height At Umbil Quickening Date Ultra Sound Latest Weeks Gestation Final Sonu Confirmed By Final Sonu Confirmed Date Final Sonu Date Ultra Sound Latest Days Gestation 0 [email or web address] 06/16/2016 12/25/19 17 0 Pre- Flowsheet Flowsheet Date 06/16/2016 Dixon Score Blood Edema Fundus Height Fundus Units Glucose Ketones Leukocytes Nitrite Labor Signs Protein Cervic Dilation Cervic Effacement Cervic Station neg none 12 cm none negative none neg 0cm 0% Type Weight in lbs Pre/Post Dialysis Refused 203.97775952055 BP Diastolic BP Location Tested BP Systolic BP Type 64 98 sitting Fetus Heart Rate Present A Absent Fetus Movement A No Comments She refused pelvic exam. Tri ed to do doppler FHT- Could not find. US ordered Flowsheet Date 07/12/2016 Dixon Score Blood Edema Fundus Height Fundus Units Glucose Ketones Leukocytes Nitrite Labor Signs Protein Cervic Dilation Cervic Effacement Cervic Station neg none 16 wks none negative none neg Type Weight in lbs Pre/Post Dialysis Refused 203.34267169754 BP Diastolic BP Location Tested BP Systolic BP Type 62 104 sitting Fetus Heart Rate Present A 155 Present Fetus Movement A No Comments TETRA AFP, US Flowsheet Date 08/09/2016 Dixon Score Blood Edema Fundus Height Fundus Units Glucose Ketones Leukocytes Nitrite Labor Signs Protein Cervic Dilation Cervic Effacement Cervic Station neg none 20 wks none negative none neg Type Weight in lbs Pre/Post Dialysis Refused 211.124072390908 BP Diastolic BP Location Tested BP Systolic BP Type 74 110 sitting Fetus Heart Rate Present A 144 Present Fetus Movement A Yes Comments us Flowsheet Date 09/06/2016 Dixon Score Blood Edema Fundus Height Fundus Units Glucose Ketones Leukocytes Nitrite Labor Signs Protein Cervic Dilation Cervic Effacement Cervic Station neg none 24 cm none negative none neg Type Weight in lbs Pre/Post Dialysis Refused 217.077876929595 BP Diastolic BP Location Tested BP Systolic BP Type 60 110 sitting Fetus Heart Rate Present A 155 Present Fetus Movement A Yes Comments TDap, 1h GTT, 30w US at next visit. Abilify added for depression. Discussing PP PBTL with patient. Flowsheet Date 11/16/2016 Dixon Score Blood Edema Fundus Height Fundus Units Glucose Ketones Leukocytes Nitrite Labor Signs Protein Cervic Dilation Cervic Effacement Cervic Station Type Weight in lbs Pre/Post Dialysis Refused BP Diastolic BP Location Tested BP Systolic BP Type Fetus Heart Rate Present Fetus Movement Comments Menstrual History Last Menstrual Date Menses Monthly On Bcp Conception Prior Menses Frequency Hcg Plus Date Menarche Onset Age 0903/17/2016 false 15 Genetic Screening And Infection History Question Response Note Patient's Age Will Be 35 Years Or Older At Estim ated Date of Delivery false Thalassemia (Emirati, Wolof, Mediterranean, Or Background): MCV < 80 false Neural Tube Defect (Meningomyelocele, Spina Bifi da, Or Anencephaly) false Congenital Heart Defect false Down Syndrome false Ronan-Sachs (eg, Baptism, Cajun, Belarusian-Botswanan) f alse Radha Disease false Sickle Cell Disease Or Trait () false Hemophilia Or Other Blood Disorders false Muscular Dystrophy false Cystic Fibrosis false Wilbarger's Chorea false Mental Retardation/Autism false If Yes, Was Person Tested For Fragile X? false Other Inherited Genetic Or Chromosomal Disorder false Maternal Metabolic Disorder (eg, Type 1 Diabetes , PKU) false Patient Or Baby's Father Had A Child With Defects Not Listed Above false Recurrent Loss, Or A Stillbirth false Medications (including Suppl ements, Vitamins, Herbs, OTC Drugs), Illicit/Recreational Drugs, Alcohol false If Yes, Agent(s) And Strength/Dosage false Any Other Genetic History false Live With Someone With TB Or Exposed To TB false Patient Or Partner Has History Of Genital Herpes false Rash Or Viral Illness Since Last Menstrual Perio d false History Of STD, Gonorrhea, Chlamydia, HPV, Syphi lis false Other Infection History false Plans and Education First Trimester Discussed Date Discussion Item Discussion Note Discuss ed By 06/16/2016 Anticipated course of care [facility] 06/16/2016 Alcohol [facility] 06/16/2016 Intimate partner violence [facility]06/16/2016 Environmental/work hazards s 06/16/2016 Screening for aneuploidy [facility] 06/16/2016 Nutrition counseling ; special diet; dietary precautions (mercury, listeriosis) [facility]2016 Childbirth classes/hospital facilities [facility] 06/16/2016 HIV and other routine tests [facility] 06/16/2016 Risk factors identif ied by history [facility] 06/16/2016 Weight gain counseling [facility] 06/16/2016 [facility]16[facility]2016 Teratogens [facility] 06/16/2016 Use of any medicatio ns (including supplements, vitamins, herbs, or OTC drugs) [facility] 06/16/2016 [facility] 06/16/2016 [facility]2016 Tobacco/smoking cess ation counseling (ask, advise, assess, assist, and arrange) [facility] 06/16/2016 Illicit/recreational drugs s [facility] 06/16/2016 Dental care [facility] 06/16/2016 [facility] 06/16/2016 Seat belt use [facility] 06/16/2016 Indications for ultrasonography [facility] 06/16/2016 Avoidance of saunas or hot tubs [facility] 06/16/2016 Toxoplasmosis precautions (cats/raw meat) [facility] Second Trimester Discussed Date Discussion Item Discussion Note Discuss ed By 08/09/2016 Selecting a care provider Marixa [email or web address] 08/09/2016 family planning/tubal sterilization signed tubal consent papers on 09/06/2016 mds [id number] 08/09/2016 Depression screening (when indicated) meds 08/09/2016 [email or web address] 08/09/2016 Abnormal lab values [facility] 19 08/09/2016 Signs and symptoms o f labor [id number] 08/09/2016 Intimate partner violence ms [id number] 08/09/2016 Tobacco/smoking cess ation counseling (ask, advise, assess, assist, and arrange) [id number] Third Trimester Discussed Date Discussion Item Discussion Note Discuss ed By Delivery Information Delivery Date Delivery Type Labor Anesthesia Weeks Gestation Incision Type Labor Labor Length Hrs Delivered By Post Complications Tubal Sterilization Discharge Date Comments 7 Sponta neous General 27 Low Transvers e true Dr. Browning None true 09/29/2016 No Pediatric claribel Discharge Information Feeding Method Contraceptive Method Maternal HG B and HCT Levels Bottle
--- OUTSIDE RECORDS SUMMARY | 2024-11-13 06:35 | XMS_ITS | Clinical Summary ---
Author Organization [facility] Address [address] [place] [address] Care Team Providers Care Cheesemaker Helper Name Role Phone Unavailable Primary Care Provider Unavailabl e Source Comments [facility],non-owned Affiliates and Associated Physician Practices is amultiple site organization consisting of ambulatory clinics and hospital sitesin [place], [place], [place] and [place]. This disclosure is being madepursuant to the Care Everywhere program and may not contain all information available regarding this patient. Last updated 18.[facility] [employer] Allergies No known active allergies Social History Tobacco Use Types Packs/Day Years Used Date Smoking Tobacco: Never Assessed Comments Unknown Sex and Gender Information Value Date Recorded Sex Assigned at Not on file Legal Sex Female 3:15 PM APPLICATION INTERNSHIP Gender Identity Not on file Sexual Orientation Not on file Last Filed Vital Signs Vital Sign Reading Time Taken Comments Blood Pressure 129/84 08/19/2023 3:17 PM APPLICATION INTERNSHIP Pulse 88 08/19/2023 3:17 PM APPLICATION INTERNSHIP Temperature 36.3 C (97.4 F) 08/19/2023 3:17 PM APPLICATION INTERNSHIP Respiratory Rate 18 08/19/2023 3:17 PM APPLICATION INTERNSHIP Oxygen Saturation 100% 08/19/2023 3:17 PM APPLICATION INTERNSHIP Inhaled Oxygen Concentration - - Weight 81.6 kg (180 lb) 08/19/2023 3:17 PM APPLICATION INTERNSHIP Height 165.1 cm (5' 5) 08/19/2023 3:17 PM APPLICATION INTERNSHIP Body Mass Index 29.95 08/19/2023 3:17 PM APPLICATION INTERNSHIP Plan of Treatment Health Maintenance Due Date Last Done Comments PAP SMEAR 1993 HIV SCREENING 2008 HEPATITIS C SCREENING 12/03/2011 DTAP/TDAP/TD VACCINES (1 - Tdap) 2012 HEPATITIS B VACCINE (1 of 3 - 19+ 3-dose series) 2012 COVID-19 VACCINE (2023-2 5 season) 2024 DEPRESSION SCREENING 06/18/2024 INFLUENZA VACCINE (Season Ended) 2025 ZOSTER VACCINE (1 of 2) 12/08/2043 HIB VACCINE Aged Out No longer eligi ble based on patient's age to complete this topic HPV VACCINE Aged Out No longer eligi ble based on patient's age to complete this topic MENINGOCOCCAL (Group B) VACC INE SHARED DECISION-MAKING Aged Out No longer eligibl e based on patient's age to complete this topic MENINGOCOCCAL GROUPS A/C/Y/W VACCINE Aged Out No longer eligible b ased on patient's age to complete this topic PNEUMOCOCCAL VACCINE Aged Out No long er eligible based on patient's age to complete this topic Insurance MEDICAID - [place]
[2024-11-13 06:42] VITALS: BP 146/87; PULSE 87; RESP 16; TEMP 37; O2SAT 98
[2024-11-13 07:10] VITALS: BP 133/81; PULSE 75; RESP 16; O2SAT 99
--- OUTSIDE RECORDS SUMMARY | 2024-11-13 07:31 | XMS_ITS | Referral Summary ---
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 Gender Identity Not on file Sexual Orientation Not on file Last Filed Vital Signs Vital Sign Reading Time Taken Comments Blood Pressure 132/79 10/05/2023 11:39 AM CDT Pulse 83 06/09/2020 8:00 AM SCHOOL OFFICE ASSISTANT Temperature 36.9 C (98.5 F) 06/09/2020 7:08 AM SCHOOL OFFICE ASSISTANT Respiratory Rate 16 06/09/2020 7:08 AM SCHOOL OFFICE ASSISTANT Oxygen Saturation 96% 06/09/2020 8:00 AM SCHOOL OFFICE ASSISTANT Inhaled Oxygen Concentration - - Weight 104.8 kg (231 lb) 10/05/2023 11:39 AM CDT Height 165.1 cm (5' 5) 10/05/2023 11:39 AM CDT Body Mass Index 38.44 10/05/2023 11:39 AM CDT Plan of Treatment Not on file Insurance [facility] Care Teams Boiler Operators Supervisor Relationship Specialty Start Date End Date Jose Reid MD PCP - General 06/09/20
--- OUTSIDE RECORDS SUMMARY | 2024-11-13 07:31 | XMS_ITS | Clinical Summary ---
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
--- OUTSIDE RECORDS SUMMARY | 2024-11-13 07:31 | XMS_ITS | Clinical Summary ---
Author Organization [facility] Address [address] [place] [address] Care Team Providers Care Glassware Maker Name Role Phone Unavailable Primary Care Provider Unavailabl e Source Comments [facility],non-owned Affiliates and Associated Physician Practices is amultiple site organization consisting of ambulatory clinics and hospital sitesin [place], [place], [place] and [place]. This disclosure is being madepursuant to the Care Everywhere program and may not contain all information available regarding this patient. Last updated 18.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 Gender Identity Not on file Sexual Orientation Not on file Last Filed Vital Signs Vital Sign Reading Time Taken Comments Blood Pressure 129/84 08/19/2023 3:17 PM MANUFACTURING ENGINEER SUPERVISOR Pulse 88 08/19/2023 3:17 PM MANUFACTURING ENGINEER SUPERVISOR Temperature 36.3 C (97.4 F) 08/19/2023 3:17 PM MANUFACTURING ENGINEER SUPERVISOR Respiratory Rate 18 08/19/2023 3:17 PM MANUFACTURING ENGINEER SUPERVISOR Oxygen Saturation 100% 08/19/2023 3:17 PM MANUFACTURING ENGINEER SUPERVISOR Inhaled Oxygen Concentration - - Weight 81.6 kg (180 lb) 08/19/2023 3:17 PM MANUFACTURING ENGINEER SUPERVISOR Height 165.1 cm (5' 5) 08/19/2023 3:17 PM MANUFACTURING ENGINEER SUPERVISOR Body Mass Index 29.95 08/19/2023 3:17 PM MANUFACTURING ENGINEER SUPERVISOR Plan of Treatment Health Maintenance Due Date [...]
[2024-11-13] MEDS: AMOXICILLIN/CLAVULANATE K 875-125 MG TAB 1 TABLET PO (07:45)
[2024-11-13 07:46] VITALS: BP 123/86; PULSE 78; RESP 15; O2SAT 100
[2024-11-13] MEDS: HYDROcodone/acetaminophen (*CRX) 5-325 MG TABLET 1 TAB PO (07:46)
--- NOTE | 2024-11-13 07:50 | ED_ITS ---
HPI - General Adult General Chief complaint: Dental/Oral Stated complaint: dental pain, broken tooth Time Seen by Provider: 11/13/24 07:24 History of Present Illness HPI narrative: Patient is a 28-year-old female who presents emergency department chief complaint of dental pain. Patient reports she was seen at [place] on Sunday started on pen VK and reports that she has continued to have pain where she had a filling fall out and reports that she has got some slight swelling on the ri ght side of her face. The patient denies trismus denies shortness of breath denies purulent drainage Related Data Allergies Allergy/AdvReac Type Severity Reaction Status Date / Time No Known Allergies Allergy Verified 11/13/24 07:11 Review of Systems Review of Systems: A 10 system review of systems was completed on the patient and is negative except for what is stated in the HPI. Nursing and ancillary documentation was reviewed. [facility] Past Medical History Medical History No pertinent past medical history Surgical History Surgical History History of section Family History Family History Mother No pertinent past medical history Social History Social History Smoking status: Never smoker Alcohol intake: never Substance use: never Substance use type: does not use Gender identity (if verbalized by the patient): Female Sexual Orientation (if Verbalized by the Patient): Straight or Heterosexual Spiritual care concerns: No Exam Narrative: GENERAL: Well-appearing, well-nourished, and in no acute distress. HEAD: Normocephalic, atraumatic. EYES: PERRLA and EOMI. ENT: Nares clear, no rhinorrhea or epistaxis. Mucous membranes moist. Multiple dental caries with erythema and slight swelling present around the posterior molar on the right mandibular molar NECK: Supple. CHEST: Clear to auscultation. No respiratory distress. HEART: Regular rate and rhythm. No murmur heard. Normal peripheral pulses. ABDOMEN: Soft, nontender, nondistended, normal active bowel sounds. EXTREMITIES: Normal range of motion. No edema. SKIN: Warm, dry, no rash. NEURO: No focal deficits. Alert and oriented x3. PSYCH: Normal mood and affect. Course Vital Signs Vital signs: Vital Signs Temperature 37.0 C 11/13/24 06:42 Pulse Rate 87 11/13/24 06:42 Respiratory Rate 16 11/13/24 06:42 Blood Pressure 146/87 H 11/13/24 06:42 Pulse Oximetry 98 11/13/24 06:42 Temperature 37.0 C 11/13/24 06:42 Pulse Rate 78 11/13/24 07:46 Respiratory Rate 15 11/13/24 07:46 Blood Pressure 123/86 11/13/24 07:46 Pulse Oximetry 100 11/13/24 07:46 Medical Decision Making MDM Narrative Medical decision making narrative: Patient has no drainable abscess this time has no signs of trench mouth or signs of Fredi's angina. Patient has no trismus Differential includes dental abscess, trench mouth, Fredi's angina, Patient antibiotic regimen was changed to Augmentin and the patient will be given additional pain control. The patient should follow-up with a dentist as soon as possible Vital Signs Vital Signs: Vital Signs Temperature 37.0 C 11/13/24 06:42 Pulse Rate 87 11/13/24 06:42 Respiratory Rate 16 11/13/24 06:42 Blood Pressure 146/87 H 11/13/24 06:42 Pulse Oximetry 98 11/13/24 06:42 Temperature 37.0 C 11/13/24 06:42 Pulse Rate 78 11/13/24 07:46 Respiratory Rate 15 11/13/24 07:46 Blood Pressure 123/86 11/13/24 07:46 Pulse Oximetry 100 11/13/24 07:46 Discharge Plan Discharge Clinical Impression: Dental abscess Patient Disposition: Home Condition: Stable Instructions: Antibiotic Form, Dental Abscess (ED) Patient Language: Slovenian Prescriptions: New hydrocodone-acetaminophen 5-325 mg tablet 1 tablet PO Q6H PRN (Reason: pain) 3 Days Qty: 12 0RF amoxicillin-pot clavulanate 875-125 mg tablet 1 tablet PO Q12H 10 Days Qty: 20 0RF No Action penicillin V potassium 500 mg tablet 500 mg PO Q6H 10 Days Qty: 40 0RF tramadol 50 mg tablet 50 mg PO Q8H PRN (Reason: pain) Qty: 15 0RF Follow-up/Referrals: Edwin Kennedy MD [Physician] - UNKNOWN,DOCTOR [Primary Care Provider] - Time of Disposition: 07:55
[2024-11-13 08:05] VITALS: BP 134/84; PULSE 76; RESP 16; TEMP 36.6; O2SAT 99
== END 2024-11-13 08:07 | disposition home or self-care (01) ==
PROVIDERS: Emergency Provider Emergency Medicine
DX: K04.7 Periapical abscess without sinus (principal)
CPT/HCPCS: 99283; A9270